=== PATIENT | female | born 1960 | race Caucasian/White ===

== ENCOUNTER 2018-05-20 21:05 | Emergency (ER) | payer OTHER ==
--- OUTSIDE RECORDS SUMMARY | 2018-05-20 21:12 | XMS REPORT ---
:1960 External Reference #:[id number] Author Organization [employer] Address [address] [place] [address] Phone [phone] Care Team Providers Name Role Phone Iwona Salgado MD Primary Care Physician Unavailable Payers Type Date Identification Numbers Payment Provider Subscriber Commercial Policy Number: [id number] [employer] Shante Zhou PayID: [id number] [address] [place] [address] Problems Date Description Provider Status Onset: 07/11/2010 Anxiety state Iwona Salgado M.D. Active Onset: 10/19/2010 Hypothyroidism Iwona Salgado M.D. Active Onset: 05/12/2013 Multiple joint pain Siddhartha Doran M.D. Active Onset: 05/12/2013 Immunological Findings Nonspec Siddhartha Doran M.D. Active Other & Unspec Onset: 05/16/2014 Inflammatory polyarthropathy Siddhartha Doran M.D. Active Onset: 05/30/2015 Acute stress disorder Siddhartha Doran M.D. Active Onset: 05/30/2015 Immunologic Siddhartha Doran M.D. Inactive Inactive: 11/02/2017 Family History Date Family Member(s) Problem(s) Comments : (age 91 Father due to Heart Years) Disease Father Heart Disease : (age 75 Mother due to Cancer liver CA - ? colon Years) Siblings 5 4 still living brother older 50yrs hepatitis older sister had an athymia : (age 50 First Brother due to stomach CA Years) Autoimmune hepatitis First Sister Arrhythmia treated with ablation. No details. 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 Cigarette Use Never Smoked Cigarettes ETOH Use 11/02/2017 Rarely consumes alcohol 1-2 beers per summer Smoking Patient has never smoked Daily Caffeine Consumes on average 2 cups 1/2 caff once a day at of decaff coffee per day work Exercise Type/Frequency Exercises regularly walk 4 mlies x5days week General Hx Text Health Care Proxy: Arnaldo Allergies, Adverse Reactions, Alerts Date Description Reaction Status Severity Comments 06/09/2010 Penicillin PT UNKNOWN active 06/30/2010 Azithromycin LUMP IN THROAT active Moderate 03/03/2018 Strawberries active get hives 03/03/2018 Kiwi Fruit Allergenic Extract active hives Medications Medication Date Status Form Strength Qnty SIG Indications Ordering Provider Rosa 05/05 Active Misc 2unit use daily as M22.2x9 Nomi Patella Knee /2016 s needed for Katlyn, Support/Medium right and left M.D. knee for stabilization Levothyroxine 01/19 Active Tablets 125mcg 90tab 1 by mouth E03.9 Iwona Sodium s every day Damian MRileyD. Sertraline HCL 10/05 Active Tablets 50mg 45tab 1 and 1/2 by F41.9 Iwona s mouth every Cotton, day M.D. Latanoprost 02/04 Active Solution 0.005% 1 drop in each Jaime /2015 eye Luz, CHILD SUPPORT SPECIALIST Alprazolam 09/10 Active Tablets 0.25mg 10tab 1 by mouth Z01.419 Iwona s every 8 hours Cotton, as needed M.D. F41.9 Calcium W/ Active Tablets 500mg / 1 po qd Unknown Vitamin D 400 Iu Vitamin D-3 Active Tablets 1200mg 90t Unknown abs Timolol Maleate Active Solution 0.5% 1 drop each Unknown eye qd Cefuroxime 11/02/2017 - Hx Tablets 500mg 14t 1 by mouth Hossein Axetil 11/09/2017 abs twice a day DRiley Villalta, for 7 days M.D.,FACP Fluconazole 09/06/2017 - Hx Tablets 150mg 4ta one po once L30 Dilma 11/02/2017 bs weekly until .4 Marcia N.P. rash clears. Desonide 08/26/2017 - Hx Cream 0.05% 15g Apply to L30 Jaime Escobar, 03/02/2018 m affected .4 CHILD SUPPORT SPECIALIST areas twice daily Aspercreme Max 05/05/2017 - Hx Liquid 16% 1un apply daily M51 Nomi Roll-On 08/26/2017 its as needed .36 Katlyn, Arthritis M.D. Strength Sertraline HCL 01/16/2016 - Hx Tablets 25mg 45t 1 and 1/2 by Iwona 06/05/2016 abs mouth every Cotton, day M.D. Levothyroxine 01/16/2016 - Hx Tablets 112mcg 90t 1 by mouth E03 Iwona Sodium 01/19/2017 abs every day .9 Austin Salgado. Clindamycin HCL 08/29/2015 - Hx Capsules 300mg 28c one capsule S80 Jaime Luz, 09/05/2015 aps by mouth .81 CHILD SUPPORT SPECIALIST every 6 hours 9A for 7 days Ceftin 02/04/2015 - Hx Tablets 250mg 20t one tab twice 465 Jaime Luz, 02/14/2015 abs daily for 10 .9 CHILD SUPPORT SPECIALIST days Vagifem 09/29/2013 - Hx Tablets 10mcg 24t pv twice a Iwona 02/20/2014 abs week (with Cotton, applicator) M.D. Alprazolam 05/15/2013 - Hx Tablets 0.25mg 40t 1 by mouth Iwona 01/17/2017 abs every 8 hours Cotton, as needed M.D. Vitamin D 02/23/2013 - Hx Capsules [id number] 12c 1 tablet once Iwona 06/18/2013 t aps weekly for 12 Cotton, weeks M.D. Sertraline HCL 02/08/2013 - Hx Tablets 50mg 30t Take One Iwona 01/16/2016 abs Tablet By Cotton, Mouth Once M.D. Daily Alprazolam 01/03/2013 - Hx Tablets 0.25mg 10t 1 by mouth 300 Iwona 05/12/2013 abs every 8 hours .00 Cotton, as needed M.D. Levothyroxine 01/03/2013 - Hx Tablets 100mcg 30t Take One E03 Iwona Sodium 01/16/2016 abs Tablet By .9 Cotton, Mouth Once M.D. Daily Levothyroxine 07/26/2012 - Hx Tablets 88mcg 30t 1 po qd 244 Dilma Sodium 01/03/2013 abs .9 Varn, N.P. Alprazolam 04/25/2012 - Hx Tablets 0.25mg 15t 1/2-1 tab po 300 Iwona 07/26/2012 abs every 8 hours .00 Cotton, as needed M.D. Vitamin D 03/30/2012 - Hx Capsules [id number] 12c 1 tablet once Iwona 07/26/2012 t aps weekly for 12 Cotton, weeks M.D. Ceftin 12/21/2011 - Hx Tablets 500mg 20t one by mouth 461 Iwona 12/31/2011 abs twice daily .9 Cotton, for 10 days M.D. Fluticasone 12/21/2011 - Hx Suspension 50mcg/Ac 1un 1 spray each 461 Iwona Propionate 04/25/2012 t its nostril daily .9 Cotton, as needed M.D. Synthroid 08/07/2010 - Hx Tablets 75mcg 90t 1 by mouth 244 Iwona 07/26/2012 abs once daily .9 Damian, M.D. Clonazepam 07/11/2010 - Hx Tablets 0.5mg 30t 1/2-1 by 300 Iwona 01/02/2011 abs mouth once .00 Cotton, daily at M.D. bedtime Sertraline HCL 07/11/2010 - Hx Tablets 50mg 30t 1 by mouth 300 Iwona 04/07/2012 abs once daily .00 Cotton, M.D. Fluticasone 06/30/2010 - Hx Suspension 50mcg/Ac 16g 2 intranasal Iwona Propionate 08/13/2010 t m puffs Daily Damian, M.D. Alprazolam 06/12/2010 - Hx Tablets 0.25mg 45t 1/2 tab po 300 Iwona 11/18/2010 abs every 8 hours .00 Cotton, as needed M.D. Levothroid - Hx Tablets 75mcg 90t 1 Tablet Iwona 08/07/2010 abs Daily Cotton, M.D. Veramyst - Hx Suspension 27.5mcg/ 1mo 2 sprays each Iwona 06/30/2010 [place] n nostril daily Cotton, M.D. Zoloft - Hx Tablets 25mg 30t 1 po qd Iwona 02/08/2013 abs Frankie Salgado Vagifem - Hx Tablets 10mcg insert 1 Unknown 08/28/2013 tablet vaginally twice a week Immunizations CPT Code Status Date Vaccine Reaction Lot # [id number] Given 07/22/2017 Influenza Virus Vaccine, [id number] Quadrivalent, Split, Preservative Free 38624 Given 07/07/2017 Tetanus And Diptheria (Td) [id number] For Adult Use Preservative Free 82247 Given 08/01/2016 Influenza Virus Vaccine, no reaction noted .. [id number] Quadrivalent, Split Virus, [place] [address] Given 08/05/2015 Influenza Virus Vaccine, [id number] Quadrivalent, Split, Preservative Free 19434 Given 07/21/2014 Influenza Virus Vaccine, [id number] Quadrivalent, Split, Preservative Free 71472 Given 08/04/2013 Flu Vaccine Split Virus [id number] Preservative Free For Indiv 3Yr Older [id number] Given 07/26/2012 Fluzone Vaccine [id number] 65265 Given 08/14/2011 Influenza Virus 3Yrs & Over [id number] 85032 Given 07/24/2010 Influenza Virus 3Yrs & Over 01117 Given 11/14/2009 Administration Swine Flu Shot 76509 Given 11/14/2009 Influenza Virus Vaccine, Pandemic Formulation 91784 Given 07/22/2009 Influenza Virus 3Yrs & Over 50490 Given 08/07/2008 Influenza Virus 3Yrs & Over 28819 Given 08/07/2008 Influenza Virus 3Yrs & Over 31021 Given 03/27/2008 Tdap - Tetanus/Diptheria/Acellular Pertussis 87842 Given 03/27/2008 Tdap - Tetanus/Diptheria/Acellular Pertussis 82922 Given 08/01/2007 Influenza Virus 3Yrs & Over 69757 Given 08/01/2007 Influenza Virus 3Yrs & Over 30177 Given 09/02/2006 Influenza Virus 3Yrs & Over Vital Signs Date Vital Result Comment 05/20/2018 Height 67 inches 5'7" Weight 167.00 lb Heart Rate 69 /min BP Systolic Sitting 116 mmHg BP Diastolic Sitting 69 mmHg Respiratory Rate 14 /min Pain Level 0 BMI (Body Mass Index) 26.2 kg/m2 03/03/2018 Height 67 inches 5'7" Weight 171.00 lb Heart Rate 68 /min BP Systolic 140 mmHg Rue reg cuff BP Diastolic 78 mmHg Rue reg cuff BP Systolic Sitting 142 mmHg Lue reg cuff BP Diastolic Sitting 84 mmHg Lue reg cuff BP Systolic Standing 150 mmHg Lue reg cuff BP Diastolic Standing 86 mmHg Lue reg cuff Respiratory Rate 16 /min O2 % BldC Oximetry 96 % BMI (Body Mass Index) 26.8 kg/m2 01/21/2018 Height 67 inches 5'7" Weight 169.00 lb Heart Rate 80 /min BP Systolic 122 mmHg BP Diastolic 76 mmHg Body Temperature 98.0 F O2 % BldC Oximetry 95 % BMI (Body Mass Index) 26.5 kg/m2 11/02/2017 Heart Rate 82 /min BP Systolic Sitting 120 mmHg BP Diastolic Sitting 80 mmHg Body Temperature 98.7 F O2 % BldC Oximetry 97 % 10/28/2017 Heart Rate 69 /min BP Systolic 122 mmHg BP Diastolic 84 mmHg Body Temperature 97.6 F O2 % BldC Oximetry 98 % 09/06/2017 Heart Rate 79 /min BP Systolic 144 mmHg BP Diastolic 82 mmHg Body Temperature 97.8 F O2 % BldC Oximetry 97 % 08/26/2017 Heart Rate 68 /min BP Systolic Sitting 121 mmHg BP Diastolic Sitting 80 mmHg O2 % BldC Oximetry 98 % 07/22/2017 Heart Rate 78 /min BP Systolic 120 mmHg BP Diastolic 80 mmHg O2 % BldC Oximetry 98 % 05/05/2017 Weight 167.38 lb Heart Rate 67 /min BP Systolic Sitting 130 mmHg BP Diastolic Sitting 79 mmHg Body Temperature 98.1 F Pain Level 1 04/08/2017 Heart Rate 60 /min BP Systolic Sitting 100 mmHg BP Diastolic Sitting 70 mmHg Respiratory Rate 16 /min Body Temperature 97.0 F 01/19/2017 Height 67 inches 5'7" Weight 165.50 lb Heart Rate 68 /min BP Systolic Sitting 130 mmHg BP Diastolic Sitting 82 mmHg Respiratory Rate 14 /min Body Temperature 98.0 F BMI (Body Mass Index) 25.9 kg/m2 11/05/2016 Weight 166.00 lb Heart Rate 60 /min BP Systolic 160 mmHg BP Diastolic 100 mmHg BP Systolic Sitting 128 mmHg BP Diastolic Sitting 84 mmHg Body Temperature 97.1 F O2 % BldC Oximetry 98 % 10/05/2016 Heart Rate 73 /min BP Systolic Sitting 160 mmHg repeat 140/100 (L) BP Diastolic Sitting 104 mmHg repeat 140/100 (L) O2 % BldC Oximetry 98 % 06/05/2016 Weight 164.50 lb Heart Rate 73 /min BP Systolic Sitting 121 mmHg BP Diastolic Sitting 71 mmHg O2 % BldC Oximetry 98 % 03/30/2016 Height 67 inches 5'7" Weight 162.00 lb Heart Rate 64 /min BP Systolic Sitting 140 mmHg BP Diastolic Sitting 78 mmHg Respiratory Rate 14 /min Body Temperature 98.4 F Pain Level 1 BMI (Body Mass Index) 25.4 kg/m2 03/09/2016 Height 67 inches 5'7" Weight 165.00 lb Heart Rate 64 /min BP Systolic Sitting 118 mmHg BP Diastolic Sitting 78 mmHg Body Temperature 98.3 F Pain Level 1 BMI (Body Mass Index) 25.8 kg/m2 01/16/2016 Height 67 inches 5'7" Weight 163.00 lb Heart Rate 15 /min BP Systolic Sitting 124 mmHg BP Diastolic Sitting 88 mmHg Respiratory Rate 15 /min Body Temperature 98.2 F O2 % BldC Oximetry 98 % BMI (Body Mass Index) 25.5 kg/m2 08/29/2015 Weight 164.00 lb Heart Rate 92 /min BP Systolic Sitting 126 mmHg BP Diastolic Sitting 86 mmHg Respiratory Rate 14 /min Body Temperature 98.8 F O2 % BldC Oximetry 97 % 08/05/2015 Weight 164.00 lb Heart Rate 75 /min BP Systolic Sitting 138 mmHg BP Diastolic Sitting 82 mmHg Body Temperature 98.3 F O2 % BldC Oximetry 98 % 05/30/2015 Height 67 inches 5'7" Weight 161.38 lb Heart Rate 100 /min BP Systolic Sitting 142 mmHg BP Diastolic Sitting 100 mmHg BP Systolic Recheck 136 mmHg BP Diastolic Recheck 90 mmHg Respiratory Rate 14 /min Pain Level 2 BMI (Body Mass Index) 25.3 kg/m2 05/13/2015 Weight 163.00 lb Heart Rate 82 /min BP Systolic Sitting 128 mmHg BP Diastolic Sitting 80 mmHg Body Temperature 98.6 F 02/04/2015 Height 67.5 inches 5'7.50" Weight 164.00 lb Heart Rate 78 /min BP Systolic 125 mmHg BP Diastolic 81 mmHg Body Temperature 98.8 F O2 % BldC Oximetry 98 % BMI (Body Mass Index) 25.3 kg/m2 01/14/2015 Height 67.5 inches 5'7.50" Weight 167.00 lb Heart Rate 73 /min BP Systolic 129 mmHg BP Diastolic 78 mmHg Body Temperature 98.8 F BMI (Body Mass Index) 25.8 kg/m2 10/25/2014 Height 67.5 inches 5'7.50" Weight 165.00 lb Heart Rate 62 /min BP Systolic 120 mmHg BP Diastolic 74 mmHg Body Temperature 97.9 F BMI (Body Mass Index) 25.5 kg/m2 09/18/2014 Weight 162.00 lb Heart Rate 75 /min BP Systolic Sitting 118 mmHg BP Diastolic Sitting 76 mmHg Body Temperature 97.3 F 09/16/2014 Weight 165.50 lb Heart Rate 60 /min BP Systolic Sitting 118 mmHg BP Diastolic Sitting 72 mmHg Pain Level 0 09/10/2014 Height 67.5 inches 5'7.50" Weight 163.00 lb Heart Rate 78 /min BP Systolic Sitting 124 mmHg BP Diastolic Sitting 78 mmHg BMI (Body Mass Index) 25.1 kg/m2 02/20/2014 Height 67.5 inches 5'7.50" Weight 163.00 lb BP Systolic Sitting 124 mmHg BP Diastolic Sitting 80 mmHg Body Temperature 99.4 F BMI (Body Mass Index) 25.1 kg/m2 01/04/2014 Height 67.5 inches 5'7.50" Weight 166.50 lb Heart Rate 64 /min BP Systolic 136 mmHg BP Diastolic 88 mmHg Respiratory Rate 16 /min Body Temperature 97.6 F BMI (Body Mass Index) 25.7 kg/m2 09/29/2013 Weight 164.25 lb Heart Rate 76 /min BP Systolic 118 mmHg BP Diastolic 86 mmHg 08/28/2013 Weight 169.00 lb Heart Rate 84 /min BP Systolic Sitting 133 mmHg BP Diastolic Sitting 74 mmHg 05/15/2013 Weight 162.00 lb Heart Rate 76 /min BP Systolic Sitting 124 mmHg BP Diastolic Sitting 76 mmHg 05/12/2013 Height 67 inches 5'7" Weight 162.50 lb Heart Rate 80 /min BP Systolic Sitting 126 mmHg BP Diastolic Sitting 80 mmHg BMI (Body Mass Index) 25.4 kg/m2 01/03/2013 Height 67 inches 5'7" Weight 162.50 lb Heart Rate 72 /min BP Systolic Sitting 104 mmHg BP Diastolic Sitting 74 mmHg BMI (Body Mass Index) 25.4 kg/m2 09/29/2012 Height 67.5 inches 5'7.50" Weight 164.00 lb Heart Rate 78 /min BP Systolic Sitting 128 mmHg BP Diastolic Sitting 76 mmHg BMI (Body Mass Index) 25.3 kg/m2 07/26/2012 Height 67.5 inches 5'7.50" Weight 162.00 lb Heart Rate 76 /min BP Systolic Sitting 122 mmHg BP Diastolic Sitting 68 mmHg BMI (Body Mass Index) 25.0 kg/m2 04/25/2012 Height 67.5 inches 5'7.50" Weight 161.00 lb Heart Rate 74 /min BP Systolic Sitting 124 mmHg BP Diastolic Sitting 68 mmHg BMI (Body Mass Index) 24.8 kg/m2 04/07/2012 Height 67.5 inches 5'7.50" Weight 160.00 lb Heart Rate 82 /min BP Systolic Sitting 130 mmHg BP Diastolic Sitting 81 mmHg BMI (Body Mass Index) 24.7 kg/m2 12/21/2011 Height 67.5 inches 5'7.50" Weight 165.00 lb Heart Rate 78 /min BP Systolic Sitting 116 mmHg BP Diastolic Sitting 62 mmHg Body Temperature 97.9 F BMI (Body Mass Index) 25.5 kg/m2 12/14/2011 Height 67.5 inches 5'7.50" Weight 163.00 lb Heart Rate 80 /min BP Systolic Sitting 122 mmHg BP Diastolic Sitting 68 mmHg Body Temperature 99.0 F BMI (Body Mass Index) 25.1 kg/m2 08/14/2011 Height 67.5 inches 5'7.50" Weight 163.00 lb Heart Rate 74 /min BP Systolic Sitting 110 mmHg BP Diastolic Sitting 68 mmHg BMI (Body Mass Index) 25.1 kg/m2 08/07/2011 Height 67.5 inches 5'7.50" Weight 164.00 lb Heart Rate 78 /min BP Systolic Sitting 118 mmHg BP Diastolic Sitting 70 mmHg BMI (Body Mass Index) 25.3 kg/m2 04/23/2011 Height 67.5 inches 5'7.50" Weight 158.00 lb Heart Rate 76 /min BP Systolic Sitting 110 mmHg BP Diastolic Sitting 70 mmHg BMI (Body Mass Index) 24.4 kg/m2 01/02/2011 Weight 155.00 lb Heart Rate 62 /min BP Systolic 118 mmHg BP Diastolic 78 mmHg 11/18/2010 Weight 153.25 lb Heart Rate 64 /min BP Systolic 104 mmHg BP Diastolic 70 mmHg Body Temperature 99.1 F 10/20/2010 Weight 151.00 lb Heart Rate 68 /min BP Systolic 112 mmHg BP Diastolic 78 mmHg 08/13/2010 Weight 149.00 lb Heart Rate 64 /min BP Systolic 112 mmHg BP Diastolic 70 mmHg 07/24/2010 Weight 146.00 lb Heart Rate 76 /min BP Systolic 120 mmHg BP Diastolic 74 mmHg 07/11/2010 Weight 147.00 lb Heart Rate 60 /min BP Systolic 122 mmHg BP Diastolic 80 mmHg 06/30/2010 Weight 150.50 lb Heart Rate 70 /min BP Systolic 126 mmHg BP Diastolic 80 mmHg 06/12/2010 Weight 148.00 lb Heart Rate 80 /min BP Systolic 130 mmHg BP Diastolic 80 mmHg 06/09/2010 Weight 150.50 lb Heart Rate 78 /min BP Systolic 110 mmHg BP Diastolic 86 mmHg Body Temperature 98.8 F Results Test Date Test Result H/L Range Note Order 03/03/2018 EKG <pending> Lipid Profile (Trig/Chol/HDL) 01/13/2018 Triglycerides 158 mg/dL 1, 2 Cholesterol 199 mg/dL 1, 3 HDL Cholesterol 44.5 mg/dL 1, 4 LDL Cholesterol 123 mg/dL 1, 5 Comp Metabolic Panel 01/13/2018 Sodium 142 mmol/L 139-145 1 Potassium 4.3 mmol/L 3.5-5.0 1 Chloride 106 mmol/L 101-111 1 Co2 Carbon Dioxide 27 mmol/L 22-32 1 Anion Gap 9 mmol/L 2-11 1 Glucose 101 mg/dL High 70-100 1 Blood Urea Nitrogen 19 mg/dL 6-24 1 Creatinine 0.93 mg/dL 0.51-0.95 1 BUN/Creatinine Ratio 20.4 High 8-20 1 Calcium 9.4 mg/dL 8.6-10.3 1 Total Protein 7.8 g/dL 6.4-8.9 1 Albumin 4.2 g/dL 3.2-5.2 1 Globulin 3.6 g/dL 2-4 1 Albumin/Globulin Ratio 1.2 1-3 1 Total Bilirubin 0.40 mg/dL 0.2-1.0 1 Alkaline Phosphatase 53 U/L 34-104 1 Alt 15 U/L 7-52 1 Ast 17 U/L 13-39 1 Egfr Non- 61.7 >60 1 Egfr 79.4 >60 1, 6 Laboratory test 01/13/2018 TSH (Thyroid Stim 1.09 mcIU/mL 0.34-5.60 1, 7 finding Horm) Laboratory test 10/28/2017 Rapid Group A negative finding Strep Laboratory test 10/28/2017 Culture Throat SEE RESULT BELOW 8 finding Urine Culture And 07/26/2017 Urine Culture SEE RESULT BELOW 9, 10 Sensitivities Liver Function Panel 07/01/2017 Total Protein 7.7 g/dL 6.4-8.9 Albumin 4.4 g/dL 3.2-5.2 Globulin 3.3 g/dL 2-4 Albumin/Globulin Ratio 1.3 1-3 Total Bilirubin 0.40 mg/dL 0.2-1.0 Direct Bilirubin 0.10 mg/dL 0.03-0.18 Indirect Bilirubin 0.3 mg/dL 0.3-1.0 Alkaline Phosphatase 52 U/L 34-104 Alt 18 U/L 7-52 Ast 19 U/L 13-39 Urinalysis Profile 07/01/2017 Urine Color Yellow Urine Appearance Clear Urine Specific [place] 1.014 1.010-1.030 Urine pH 6.0 5-9 Urine Urobilinogen Negative Negative Urine Ketones Negative Negative Urine Protein Negative Negative Urine Leukocytes 2+ Negative Urine Blood 1+ Negative Urine Nitrite Negative Negative Urine Bilirubin Negative Negative Urine Glucose Negative Negative Urine White Blood Cell 1+(6-10/hpf) Absent Urine Red Blood Cell Trace(0-2/hpf) Absent Urine Bacteria Absent Absent Urine Squamous Epithelial Cell Present Absent Urine Culture And 07/01/2017 Urine Culture SEE RESULT BELOW 11 Sensitivities Connective Tissue Panel 05/13/2017 Anti-Nuclear 2.1 U High 12 Antibody Cyclic Citrullinated Peptide <15.6 U 13 Interpretation See Comment 14 Laboratory test 05/13/2017 Anti Double Stranded Dna 103 IU/mL 15 finding AB Laboratory test 03/10/2017 TSH (Thyroid Stim Horm) 1.09 mcIU/mL 0.34- 5.60 16 finding Lipid Profile 01/11/2017 Triglycerides 184 mg/dL 17 (Trig/Chol/HDL) Cholesterol 227 mg/dL 18 HDL Cholesterol 44.0 mg/dL 19 LDL Cholesterol 146 mg/dL 20 Laboratory test finding 01/11/2017 TSH (Thyroid Stim 5.69 mcIU/mL High 0.34-5.60 Horm) Basic Metabolic Panel 01/11/2017 Sodium 138 mmol/L 133-145 Potassium 4.3 mmol/L 3.5-5.0 Chloride 104 mmol/L 101-111 Co2 Carbon Dioxide 29 mmol/L 22-32 Anion Gap 5 mmol/L 2-11 Glucose 94 mg/dL 70-100 Blood Urea Nitrogen 17 mg/dL 6-24 Creatinine 0.93 mg/dL 0.51-0.95 BUN/Creatinine Ratio 18.3 8-20 Calcium 9.3 mg/dL 8.6-10.3 Egfr Non- 61.9 >60 Egfr 79.6 >60 21 Laboratory test finding 03/12/2016 TSH (Thyroid Stim Horm) 1.83 ?IU/mL 0.34-5.60 22 Laboratory test finding 03/12/2016 Centromere Auto Abs <0.2 U 23 Ribosomal Antibody 0.6 U 24 Anti Double Stranded Dna Ab 61.6 IU/mL High 25 Interpretation See Comment 26 dsDNA Ab by Crithidia Ifa Negative Negative Crithidia Interpretation See Comment 27 Isabelle Igg AB Reflex 03/12/2016 SS-A/Ro Antibody <0.2 U 28 SS-B/La Antibody <0.2 U 29 Sm (Suresh) IgG Antibody 0.2 U 30 U1-nRNP Antibody 0.8 U 31 Scl-70 (Scleroderma) Antibody <0.2 U 32 Sanaz-1 Antibody <0.2 U 33 Laboratory test finding 03/12/2016 Vitamin B12 387 pg/mL 180-914 34 Vitamin D, 1,25 Dihydroxy 37 pg/mL 18-78 35 Connective Tissue Panel 03/12/2016 Anti-Nuclear Antibody 3.1 U High 36 Cyclic Citrullinated Peptide 47.1 U 37 Laboratory test finding 01/10/2016 TSH (Thyroid Stim 7.11 ?IU/mL High 0.34 -5.60 38 Horm) Comp Metabolic Panel 01/10/2016 Sodium 138 mmol/L 133-145 Potassium 4.1 mmol/L 3.5-5.0 Chloride 104 mmol/L 101-111 Co2 Carbon Dioxide 30 mmol/L 22-32 Anion Gap 4 mmol/L 2-11 Glucose 95 mg/dL 70-100 Blood Urea Nitrogen 18 mg/dL 6-24 Creatinine 1.00 mg/dL High 0.51-0.95 BUN/Creatinine Ratio 18.0 8-20 Calcium 9.4 mg/dL 8.6-10.3 Total Protein 7.3 g/dL 6.4-8.9 Albumin 4.2 g/dL 3.2-5.2 Globulin 3.1 g/dL 2-4 Albumin/Globulin Ratio 1.4 1-3 Total Bilirubin 0.40 mg/dL 0.2-1.0 Alkaline Phosphatase 53 U/L 34-104 Alt 13 U/L 7-52 Ast 16 U/L 13-39 Egfr Non- 57.1 >60 Egfr 73.5 >60 39 Lipid Profile (Trig/Chol/HDL) 01/10/2016 Triglycerides 148 mg/dL 40 Cholesterol 212 mg/dL 41 HDL Cholesterol 43.7 mg/dL 42 LDL Cholesterol 139 mg/dL 43 Laboratory test finding 12/26/2015 Clotest SEE RESULT BELOW 44 Laboratory test finding 12/26/2015 Surgical Pathology SEE RESULT BELOW 45 Laboratory test finding 08/13/2015 Ferritin 100.9 ng/mL 11-307 CBC Auto Diff 08/13/2015 White Blood Count 5.1 10^3/uL 4.8-10.8 Red Blood Count 4.46 10^6/uL 4.0-5.4 Hemoglobin 14.0 g/dL 12.0-16.0 Hematocrit 42 % 35-47 Mean Corpuscular Volume 95 fL 80-97 Mean Corpuscular Hemoglobin 31 pg 27-31 Mean Corpuscular HGB Conc 33 g/dL 31-36 Red Cell Distribution Width 14 % 10.5-15 Platelet Count 219 10^3/uL 150-450 Mean Platelet Volume 7 um3 Low 7.4-10.4 Abs Neutrophils 2.6 10^3/uL 1.5-7.7 Abs Lymphocytes 2.0 10^3/uL 1.0-4.8 Abs Monocytes 0.4 10^3/uL 0-0.8 Abs Eosinophils 0.1 10^3/uL 0-0.6 Abs Basophils 0.1 10^3/uL 0-0.2 Abs Nucleated RBC 0 10^3/uL Granulocyte % 50.6 % 38-83 Lymphocyte % 38.6 % 25-47 Monocyte % 7.9 % 1-9 Eosinophil % 1.8 % 0-6 Basophil % 1.1 % 0-2 Nucleated Red Blood Cells % 0.1 Jone Hep-2 05/17/2015 Jone Pattern Centromere Negative Jone Titer 1:320 <1:80 Jone Reviewed By MD Nella Wood 46 Laboratory test finding 05/17/2015 Rheumatoid Factor <15 IU/mL <15 47 Cyclic Citrullinated Pep Igg 34.5 U 48 Comp Metabolic Panel 05/17/2015 Sodium 139 mmol/L 133-145 Potassium 4.0 mmol/L 3.5-5.0 Chloride 104 mmol/L 101-111 Co2 Carbon Dioxide 27 mmol/L 22-32 Anion Gap 8 mmol/L 2-11 Glucose 88 mg/dL 70-100 Blood Urea Nitrogen 19 mg/dL 6-24 Creatinine 0.93 mg/dL 0.51-0.95 BUN/Creatinine Ratio 20.4 High 8-20 Calcium 9.7 mg/dL 8.6-10.3 Total Protein 8.0 g/dL 6.4-8.9 Albumin 4.4 g/dL 3.2-5.2 Globulin 3.6 g/dL 2-4 Albumin/Globulin Ratio 1.2 1-3 Total Bilirubin 0.50 mg/dL 0.2-1.0 Alkaline Phosphatase 57 U/L 34-104 Alt 18 U/L 7-52 Ast 19 U/L 13-39 Egfr Non- 62.4 >60 Egfr 80.2 >60 49 Laboratory test finding 05/17/2015 Erythrocyte Sed Rate 27 mm/Hr 0-30 C Reactive Protein 3.06 mg/L < 5.00 50 Jone (Antinuclear Antibodies) Reflexed to FA Negative Isabelle Screen Negative Negative 51 Anti Dna (Double Stranded Dna) Negative Negative Lipid Profile (Trig/Chol/HDL) 05/17/2015 Triglycerides 208 mg/dL 52, 53 Cholesterol 217 mg/dL 52, 54 HDL Cholesterol 44.9 mg/dL 52, 55 LDL Cholesterol 131 mg/dL 52, 56 Laboratory test finding 05/17/2015 TSH (Thyroid Stim 3.61 ?IU/mL 0.34- 5.60 52, 57 Horm) Basic Metabolic Panel 09/12/2014 Sodium 139 mmol/L 133-145 Potassium 4.4 mmol/L 3.5-5.0 58 Chloride 105 mmol/L 101-111 Co2 Carbon Dioxide 30 mmol/L 22-32 Anion Gap 4 mmol/L 2-11 Glucose 97 mg/dL 70-100 Blood Urea Nitrogen 19 mg/dL 6-24 Creatinine 0.98 mg/dL High 0.51-0.95 BUN/Creatinine Ratio 19.4 8-20 Calcium 9.7 mg/dL 8.6-10.3 Egfr Non- 58.9 >60 Egfr 75.8 >60 59 Laboratory test finding 09/12/2014 Creatine Kinase 157 U/L 10-223 CBC Auto Diff 05/16/2014 White Blood Count 5.3 10^3/uL 4.8-10.8 Red Blood Count 4.52 10^6/uL 4.0-5.4 Hemoglobin 14.4 g/dL 12.0-16.0 Hematocrit 42 % 35-47 Mean Corpuscular Volume 93 fL 80-97 Mean Corpuscular Hemoglobin 32 pg High 27-31 Mean Corpuscular HGB Conc 34 g/dL 31-36 Red Cell Distribution Width 14 % 10.5-15 Platelet Count 221 10^3/uL 150-450 Mean Platelet Volume 8 um3 7.4-10.4 Abs Neutrophils 2.5 10^3/uL 1.5-7.7 Abs Lymphocytes 2.1 10^3/uL 1.0-4.8 Abs Monocytes 0.5 10^3/uL 0-0.8 Abs Eosinophils 0.1 10^3/uL 0-0.6 Abs Basophils 0 10^3/uL 0-0.2 Abs Nucleated RBC 0 10^3/uL Granulocyte % 47.6 % 38-83 Lymphocyte % 39.3 % 25-47 Monocyte % 9.6 % High 1-9 Eosinophil % 2.6 % 0-6 Basophil % 0.9 % 0-2 Nucleated Red Blood Cells % 0.1 Comp Metabolic Panel 05/16/2014 Sodium 141 mmol/L 133-145 Potassium 4.3 mmol/L 3.7-5.6 Chloride 104 mmol/L 101-111 Co2 Carbon Dioxide 33 mmol/L High 22-32 Anion Gap 4 mmol/L 2-11 Glucose 78 mg/dL 70-100 Blood Urea Nitrogen 17 mg/dL 6-24 Creatinine 0.97 mg/dL High 0.51-0.95 BUN/Creatinine Ratio 17.5 8-20 Calcium 9.7 mg/dL 8.6-10.3 Total Protein 8.0 g/dL 6.4-8.9 Albumin 4.6 g/dL 3.2-5.2 Globulin 3.4 g/dL 2-4 Albumin/Globulin Ratio 1.4 1-3 Total Bilirubin 0.30 mg/dL 0.2-1.0 Alkaline Phosphatase 57 U/L 34-104 Alt 17 U/L 7-52 Ast 19 U/L 13-39 Egfr Non- 59.6 >60 Egfr 76.7 >60 60 Laboratory test finding 05/16/2014 C Reactive Protein 1.20 mg/L < 5.00 61 Erythrocyte Sed Rate 19 mm/Hr 0-30 Jone (Anti-Nuclear AB) Screen Reflexed to FA Negative Isabelle Screen Reflexed Negative 62 Anti Double Stranded Dna Negative Negative Urinalysis Profile 05/16/2014 Urine Color Yellow Urine Appearance Clear Urine Specific Corona 1.020 1.010-1.030 Urine pH 7.0 5-9 Urine Urobilinogen Negative Negative Urine Ketones Negative Negative Urine Protein Negative Negative Urine Leukocytes Negative Negative Urine Blood Negative Negative Urine Nitrite Negative Negative Urine Bilirubin Negative Negative Urine Glucose Negative Negative Isabelle Igg AB Reflex 05/16/2014 SS-A/Ro Antibody 0.3 U 63 SS-B/La Antibody 0.7 U 64 Sm (Suresh) IgG Antibody 0.3 U 65 U1-nRNP Antibody 0.9 U 66 Scl-70 (Scleroderma) Antibody <0.2 U 67 Sanaz-1 Antibody <0.2 U 68 Jone Hep-2 05/16/2014 Jone Pattern Centromere Negative Jone Titer 1:160 <1:80 Jone Reviewed By MD Heladio aTte <SEE NOTE> 69 Lipid Profile (Trig/Chol/HDL) 05/03/2014 Triglycerides 178 mg/dL 70 Cholesterol 214 mg/dL 71 HDL Cholesterol 42.2 mg/dL 72 LDL Cholesterol 136 mg/dL 73 Laboratory test finding 05/03/2014 Hepatitis C Antibody Nonreactive Nonreactive Comp Metabolic Panel 01/01/2014 Sodium 140 mmol/L 133-145 Potassium 4.8 mmol/L 3.7-5.6 Chloride 105 mmol/L 101-111 Co2 Carbon Dioxide 30 mmol/L 22-32 Anion Gap 5 mmol/L 2-11 Glucose 86 mg/dL 70-100 Blood Urea Nitrogen 15 mg/dL 6-24 Creatinine 0.96 mg/dL High 0.51-0.95 BUN/Creatinine Ratio 15.6 8-20 Calcium 9.6 mg/dL 8.6-10.3 Total Protein 7.7 g/dL 6.4-8.9 Albumin 4.3 g/dL 3.2-5.2 Globulin 3.4 g/dL 2-4 Albumin/Globulin Ratio 1.3 1-3 Total Bilirubin 0.40 mg/dL 0.2-1.0 Alkaline Phosphatase 57 U/L 34-104 Alt 19 U/L 7-52 Ast 20 U/L 13-39 Egfr Non- 60.3 >60 Egfr 77.6 >60 74 Lipid Profile (Trig/Chol/HDL) 01/01/2014 Triglycerides 213 mg/dL 75 Cholesterol 237 mg/dL 76 HDL Cholesterol 47.9 mg/dL 77 LDL Cholesterol 147 mg/dL 78 Laboratory test finding 01/01/2014 TSH (Thyroid Stimulating 4.42 IU/mL 0.34-5.60 79 Horm) Vitamin D, 25 Hydroxy 01/01/2014 25-Hydroxy Vitamin D2 7.9 ng/mL 25-Hydroxy Vitamin D3 16 ng/mL 25-Hydroxy Vitamin D Total 24 ng/mL 80 CBC With Manual Diff 05/01/2013 White Blood Count 5.3 10^3/uL 4.8-10.8 Red Blood Count 4.69 10^6/uL 4.0-5.4 Hemoglobin 15.2 g/dL 12.0-16.0 Hematocrit 44 % 35-47 Mean Corpuscular Volume 95 fL 80-97 Mean Corpuscular Hemoglobin 32 pg High 27-31 Mean Corpuscular HGB Conc 34 g/dL 31-36 Red Cell Distribution Width 14 % 10.5-15 Platelet Count 232 10^3/uL 150-450 Mean Platelet Volume 8 um3 7.4-10.4 Abs Neutrophils 3.0 10^3/uL 1.5-7.7 Abs Lymphocytes 1.8 10^3/uL 1.0-4.8 Abs Monocytes 0.4 10^3/uL 0-0.8 Abs Eosinophils 0.1 10^3/uL 0-0.6 Abs Basophils 0 10^3/uL 0-0.2 Abs Nucleated RBC 0.01 10^3/uL Neutrophil % 62 % 38-83 Lymphocytes % 32 % 25-47 Monocytes % 5 % 0-13 Basophil % 1 % 0-2 RBC Morphology Normal Normal Laboratory test finding 05/01/2013 Erythrocyte Sed Rate 23 mm/Hr 0-30 C Reactive Protein 0.8 mg/dL High Less than 0.5 Comp Metabolic Panel 05/01/2013 Sodium 138 mmol/L 133-145 Potassium 3.9 mmol/L 3.5-5.0 Chloride 104 mmol/L 101-111 Co2 Carbon Dioxide 30.0 mmol/L 22-32 Anion Gap 4.0 mmol/L 2-11 Glucose 92 mg/dL 70-100 Blood Urea Nitrogen 17 mg/dL 6-24 Creatinine 0.90 mg/dL 0.50-1.40 BUN/Creatinine Ratio 18.9 8-20 Calcium 9.6 mg/dL 8.1-9.9 Total Protein 7.6 g/dL 6.2-8.1 Albumin 4.2 g/dL 3.6-5.4 Globulin 3.4 g/dL 2-4 Albumin/Globulin Ratio 1.2 1-3 Total Bilirubin 0.6 mg/dL 0.4-1.5 Alkaline Phosphatase 56 U/L 30-110 Alt 18 U/L 14-54 Ast 23 U/L 12-42 Egfr Non- 65.2 >60 Egfr 83.9 >60 81 Laboratory test finding 05/01/2013 Cyclic Citrullinated Pept IgG 16.7 U 82 Rheumatoid Factor <15 IU/mL <15 83 Jone (Anti-Nuclear AB) Screen Reflexed to FA Negative 84 Isabelle Screen Negative Negative 85 Anti Double Stranded Dna Positive Negative 86 Jone Hep-2 05/01/2013 Jone Pattern Speckled Negative Jone Titer 1:160 <1:80 Ojne Reviewed By MD Heladio Tate <SEE NOTE> 87 Vitamin D, 25 Hydroxy 02/20/2013 25-Hydroxy Vitamin D2 6.1 ng/mL 25-Hydroxy Vitamin D3 17 ng/mL 25-Hydroxy Vitamin D Total 23 ng/mL 88 Laboratory test finding 02/20/2013 TSH (Thyroid Stimulating 3.69 miu/mL 0.34-5.60 89 Horm) Vitamin B12 355 pg/mL 180-914 90 Laboratory test finding 11/29/2012 Glucose 88 mg/dL 70-100 91 TSH (Thyroid Stimulating Horm) 5.19 miu/mL 0.34-5.60 92 Lipid Profile (Trig/Chol/HDL) 11/29/2012 Triglycerides 113 mg/dL 40-200 Cholesterol 204 mg/dL High Less than 200 HDL Cholesterol 47 mg/dL 40-60 93 Cholesterol/HDL Ratio 4.3 Average 1-4.44 LDL Cholesterol 134.4 mg/dL High Less Than 100 94 Laboratory test finding 11/29/2012 TSH (Thyroid Stimulating 4.28 miu/mL 0.34-5.60 95 Horm) Laboratory test finding 06/10/2012 TSH 4.80 MIU/ML 0.34-5.60 Lipid Profile 06/10/2012 Triglyceride 139 mg/dL 40-200 (Trig/Chol/HDL) Cholesterol 205 mg/dL High Less Than 200 96 High Density Lipoprotein 47 mg/dL 40-60 97 Cholesterol/HDL Ratio 4.36 AVERAGE 1-4.44 Low Density Lipoprotein 130 mg/dL High Less Than 100 98 Vitamin D, 25 Hydroxy 06/10/2012 25-Hydroxy Vitamin D2 35 ng/mL () 25-Hydroxy Vitamin D3 13 ng/mL () 25-Hydroxy Vitamin D Total 48 ng/mL () 99 Dna Autoab Single-Stranded 03/29/2012 SS-A/Ro Autoantibodies 0.2 U () 100 SS-B/La Autoantibodies 0.2 U () 101 Jone (Antinuclear Antibodies) 03/29/2012 Antinuclear AB POSITIVE (NEG) Antinuclear AB PENDING FA Negative Jone Pattern CENTROMERE Antinuclear AB 1:160 Jone Rev By MD HELADIO TATE <SEE NOTE> 102 Laboratory test finding 03/29/2012 Erythrocyte Sed Rate 21 MM/HR 0-30 Scleroderma AB (SCL70) <0.2 U () 103 Cyclic Citrullinated Pep Igg 28.6 U () 104 Rheumatoid Factor < 15 IU/mL <15 105 CBC With Manual Diff 03/29/2012 White Blood Count 5.4 CUMM 4.8-10.8 Red Cell Count 4.49 CUMM 4.2-5.4 Hemoglobin 14.4 g/dL 12.0-16.0 Hematocrit 41 % 35-47 Mean Corpuscular Volume 92 um3 79-97 Mean Corpuscular Hemoglob 32 pg High 27-31 Mean Corpuscular HGB Cone 35 g/dL 32-36 Redcell Distribution WDTH 14 % 10.5-15 Platelet Count 222 CUMM 150-450 Mean Platelet Volume 7.9 um3 7.4-10.4 Absolute Neutrophil Count 3.0 1.5-7.7 Polysegmented Neutrophil 57 % 38-83 Lymphocyte 36 % 25-47 Monocyte 5 % 0-13 Eosinophil 1 % 0-6 Basophil 1 % 0-2 RBC Morphology NORMAL Laboratory test finding 03/29/2012 C Reactive Protein < 0.5 mg/dL Less Than 0.5 Comp Metabolic Panel 03/29/2012 Sodium 139 mmol/L 135-145 Potassium 4.0 mmol/L 3.5-5.0 Chloride 106 mmol/L 101-111 Co2 (Carbon Dioxide) 26.0 mmol/L 22-32 Anion Gap 7.0 mmol/L 2-11 106 Glucose 92 mg/dL 70-100 BUN 13 mg/dL 6-24 Creatinine 0.9 mg/dL 0.50-1.40 One Over Creatinine 1.11 BUN/Creatinine Ratio 14.4 8-20 Calcium 9.2 mg/dL 8.1-9.9 Total Protein 7.5 GM/DL 6.2-8.1 Albumin 4.2 GM/DL 3.6-5.4 Globulin 3.3 GM/DL 2-4 Albumin/Globulin Ratio 1.3 1-3 Bilirubin Total 0.8 mg/dL 0.4-1.5 107 Alkaline Phosphatase 59 U/L 30-110 Alt (SGPT) 22 U/L 14-54 Ast (Sgot) 24 U/L 12-42 eGFR Non- 65.5 > 60 eGFR 84.2 > 60 108 Vitamin D, 25 Hydroxy 03/29/2012 25-Hydroxy Vitamin D2 <4.0 ng/mL () 25-Hydroxy Vitamin D3 20 ng/mL () 25-Hydroxy Vitamin D Total 20 ng/mL () 109 Laboratory test finding 11/18/2011 Isabelle Screen NEGATIVE Negative 110 Jone (Antinuclear Antibodies) 11/18/2011 Antinuclear AB POSITIVE (NEG) Antinuclear AB PENDING FA Negative Jone Pattern CENTROMERE Antinuclear AB 1:160 Jone Rev By MD HELADIO TATE <SEE NOTE> 111 Laboratory test finding 11/18/2011 Scleroderma AB (SCL70) <0.2 U () 112 Dna Autoab Single-Stranded 11/18/2011 SS-A/Ro Autoantibodies 0.2 U () 113 SS-B/La Autoantibodies 0.2 U () 114 Laboratory test finding 11/18/2011 Erythrocyte Sed Rate 17 MM/HR 0-30 Centromere Autoantibodies <0.2 U () 115 Rheumatoid Factor < 15 IU/mL <15 116 CBC With Manual Diff 11/18/2011 White Blood Count 4.9 CUMM 4.8-10.8 Red Cell Count 4.27 CUMM 4.2-5.4 Hemoglobin 14.1 g/dL 12.0-16.0 Hematocrit 40 % 35-47 Mean Corpuscular Volume 94 um3 79-97 Mean Corpuscular Hemoglob 33 pg High 27-31 Mean Corpuscular HGB Cone 35 g/dL 32-36 Redcell Distribution WDTH 13 % 10.5-15 Platelet Count 240 CUMM 150-450 Mean Platelet Volume 8.0 um3 7.4-10.4 Polysegmented Neutrophil 77 % 38-83 Lymphocyte 17 % Low 25-47 Monocyte 3 % 0-13 Eosinophil 3 % 0-6 Absolute Neutrophil Count 3.7 RBC Morphology NORMAL Laboratory test finding 11/18/2011 C Reactive Protein 0.9 mg/dL High Less Than 0.5 Comp Metabolic Panel 11/18/2011 Sodium 138 mmol/L 135-145 Potassium 4.1 mmol/L 3.5-5.0 Chloride 106 mmol/L 101-111 Co2 (Carbon Dioxide) 28.0 mmol/L 22-32 Anion Gap 4.0 mmol/L 2-11 117 Glucose 91 mg/dL 70-100 BUN 19 mg/dL 6-24 Creatinine 1.0 mg/dL 0.50-1.40 One Over Creatinine 1.00 BUN/Creatinine Ratio 19.0 8-20 Calcium 9.4 mg/dL 8.1-9.9 Total Protein 7.8 GM/DL 6.2-8.1 Albumin 4.1 GM/DL 3.6-5.4 Globulin 3.7 GM/DL 2-4 Albumin/Globulin Ratio 1.1 1-3 Bilirubin Total 0.5 mg/dL 0.4-1.5 118 Alkaline Phosphatase 54 U/L 30-110 Alt (SGPT) 19 U/L 14-54 Ast (Sgot) 21 U/L 12-42 eGFR Non- 58.0 > 60 eGFR 74.6 > 60 119 CBC Auto Diff 04/23/2011 White Blood Count 6.9 CUMM 4.8-10.8 120 Red Cell Count 4.28 CUMM 4.2-5.4 120 Hemoglobin 13.6 g/dL 12.0-16.0 120 Hematocrit 41 % 35-47 120 Mean Corpuscular Volume 95 um3 79-97 120 Mean Corpuscular Hemoglob 32 pg High 27-31 120 Mean Corpuscular HGB Cone 33 g/dL 32-36 120 Redcell Distribution WDTH 14 % 10.5-15 120 Platelet Count 224 CUMM 150-450 120 Mean Platelet Volume 7.9 um3 7.4-10.4 120 Gran % 62.5 % 38-83 120 Lymph % 25.6 % 25-47 120 Mononuclear % 9.4 % High 1-9 120 Eosinophil % 1.9 % 0-6 120 Basophil % 0.6 % 0-2 120 Abs Lymphs 1.8 1.0-4.8 120 Abs Mononuclear 0.7 0-0.8 120 Absolute Neutrophil Count 4.3 1.5-7.7 120 Abs Eosinophils 0.1 0-0.6 120 Abs Basophils 0 0-0.2 120 Lipid Profile (Trig/Chol/HDL) 04/23/2011 Triglyceride 208 mg/dL High 40- 200 120 Cholesterol 209 mg/dL High Less Than 200 120, 121 High Density Lipoprotein 45 mg/dL 40-60 120, 122 Cholesterol/HDL Ratio 4.64 AVERAGE High 1-4.44 120 Low Density Lipoprotein 122 mg/dL High Less Than 100 120, 123 Comp Metabolic Panel 04/23/2011 Sodium 138 mmol/L 135-145 120 Potassium 4.3 mmol/L 3.5-5.0 120 Chloride 105 mmol/L 101-111 120 Co2 (Carbon Dioxide) 28.0 mmol/L 22-32 120 Anion Gap 5.0 mmol/L 2-11 120, 124 Glucose 98 mg/dL 70-100 120 BUN 13 mg/dL 6-24 120 Creatinine 0.90 mg/dL 0.50-1.40 120 One Over Creatinine 1.10 120 BUN/Creatinine Ratio 14.4 8-20 120 Calcium 9.4 mg/dL 8.1-9.9 120 Total Protein 7.7 GM/DL 6.2-8.1 120 Albumin 4.3 GM/DL 3.6-5.4 120 Globulin 3.4 GM/DL 2-4 120 Albumin/Globulin Ratio 1.3 1-3 120 Bilirubin Total 0.5 mg/dL 0.4-1.5 120, 125 Alkaline Phosphatase 49 U/L 30-110 120 Alt (SGPT) 16 U/L 14-54 120 Ast (Sgot) 23 U/L 12-42 120 eGFR Non- 65.7 > 60 120 eGFR 84.6 > 60 120, 126 Laboratory test finding 04/23/2011 Cyclic Citrullinated Pep Igg 20.2 U ( ) 120, 127 TSH 3.87 MIU/ML 0.34-5.60 120 Jone (Antinuclear Antibodies) 04/23/2011 Antinuclear AB POSITIVE Negative 120 Jone Pattern CENTROMERE 120 Antinuclear AB 1:80 120 Reviewed By (SEE NOTE) 120, 128 Laboratory test finding 04/23/2011 Erythrocyte Sed Rate 19 MM/HR 0-30 120 C Reactive Protein < 0.5 mg/dL Less Than 0.5 120 Rheumatoid Factor < 15 IU/mL <15 120, 129 Surgical Pathology 12/01/2010 Surgical Pathology <SEE 130 NOTE> Laboratory test 12/01/2010 Clotest NEGATIVE finding Laboratory test 10/27/2010 TSH 2.99 MIU/ML 0.34-5. finding 60 Lipid Profile 10/27/2010 Triglyceride 99 mg/dL 40-200 (Trig/Chol/HDL) Cholesterol 207 mg/dL High Less Than 200 131 High Density Lipoprotein 50 mg/dL 40-60 132 Cholesterol/HDL Ratio 4.14 AVERAGE 1-4.44 Low Density Lipoprotein 137 mg/dL High Less Than 100 133 Comp Metabolic Panel 10/27/2010 Sodium 137 mmol/L 135-145 Potassium 4.2 mmol/L 3.5-5.0 Chloride 102 mmol/L 101-111 Co2 (Carbon Dioxide) 30.0 mmol/L 22-32 Anion Gap 5.0 mmol/L 2-11 134 Glucose 87 mg/dL 70-100 BUN 16 mg/dL 6-24 Creatinine 0.90 mg/dL 0.50-1.40 One Over Creatinine 1.10 BUN/Creatinine Ratio 17.8 8-20 Calcium 9.4 mg/dL 8.1-9.9 Total Protein 7.7 GM/DL 6.2-8.1 Albumin 4.2 GM/DL 3.6-5.4 Globulin 3.5 GM/DL 2-4 Albumin/Globulin Ratio 1.2 1-3 Bilirubin Total 0.8 mg/dL 0.4-1.5 135 Alkaline Phosphatase 50 U/L 30-110 Alt (SGPT) 16 U/L 14-54 Ast (Sgot) 20 U/L 12-42 eGFR Non- 70.2 > 60 eGFR 84.9 > 60 136 CBC With Electronic Diff 10/27/2010 White Blood Count 5.1 CUMM 4.8-10.8 Red Cell Count 4.31 CUMM 4.2-5.4 Hemoglobin 14.2 g/dL 12.0-16.0 Hematocrit 41 % 35-47 Mean Corpuscular Volume 95 um3 79-97 Mean Corpuscular Hemoglob 33 pg High 27-31 Mean Corpuscular HGB Cone 35 g/dL 32-36 Redcell Distribution WDTH 13 % 10.5-15 Platelet Count 212 CUMM 150-450 Mean Platelet Volume 7.2 um3 Low 7.4-10.4 Gran % 55.4 % 38-83 Lymph % 32.7 % 25-47 Mononuclear % 8.4 % 1-9 Eosinophil % 2.6 % 0-6 Basophil % 0.9 % 0-2 Abs Lymphs 1.7 1.0-4.8 Abs Mononuclear 0.4 0-0.8 Absolute Neutrophil Count 2.8 1.5-7.7 Abs Eosinophils 0.1 0-0.6 Abs Basophils 0 0-0.2 1 FASTING 10 HOUR 2 Desirable: <150 Borderline High: 150-199 High: 200-499 Very High: >500 3 Desirable: <200 Borderline High: 200-239 High: >239 4 Low: <40 Desirable: 40-60 High: >60 5 Desirable: <100 Near Optimal: 100-129 Borderline High: 130-159 High: 160-189 Very High: >189 6 Because ethnic data is not always readily available, this report includes an eGFR for both -Americans and non- Americans. The National Kidney Disease Education Program (NKDEP) does not endorse the use of the MDRD equation for patients that are not between the ages of 18 and 70, are , have extremes of body size, muscle mass, or nutritional status, or are non- or non-. According to the National Kidney Foundation, irrespective of diagnosis, the stage of the disease is based on the level of kidney function: Stage Description GFR(mL/min/1.73 m(2)) 1 Kidney damage with normal or decreased GFR 90 2 Kidney damage with mild decrease in GFR 60-89 3 Moderate decrease in GFR 30-59 4 Severe decrease in GFR 15-29 5 Kidney failure <15 (or dialysis) 7 FASTING 10 HOUR 8 SEE RESULT BELOW Name: SHANTE ZHOU : [address]: Jaime Escobar NP Acct: [id number] Unit: [id number] AGE: 56 Location: [facility] Re10/28/17 SEX: F Status: REG REF SPEC: [id number] MARIEL: 10/28/[address]: Jaime Escobar NP REQ: [id number] RECD: 10/28/17 STATUS: COMP _ SOURCE: THROAT SPDESC: ORDERED: Throat Culture COMMENTS: [id number] Procedure Result Reported Site Throat Culture Final 10/30/17- 1325 ML Organism 1 NORMAL SHANE Quantity 3+ * ML - MAIN LAB ([facility]) . END OF REPORT * ML=Testing performed at Main Lab DEPARTMENT OF PATHOLOGY, [address] [place] [address] Heladio Galvan M.D. Director [facility] # [id number] SEE RESULT BELOW Name: SHANTE ZHOU : [address]: Iwona Salgado MD Acct: [id number] Unit: [id number] AGE: 56 Location: [facility] Re07/26/17 SEX: F Status: REG REF SPEC: [id number] MARIEL: 07/26/[address] [facility] [address]: Iwona Salgado MD REQ: [id number] RECD: 07/26/17 STATUS: COMP _ SOURCE: URINE SPDESC: ORDERED: Urine Culture COMMENTS: [id number] Procedure Result Reported Site Urine Culture Final 07/27/17- 1241 ML No Growth (<1,000 CFU/mL) * ML - MAIN LAB ([facility]) . END OF REPORT * ML=Testing performed at Main Lab DEPARTMENT OF PATHOLOGY, [address] [place] [address] Heladio Galvan M.D. Director [facility] # [id number] 11 SEE RESULT BELOW Name: SHANTE ZHOU : [address]: Nomi Potts MD Acct: [id number] Unit: [id number] AGE: 56 Location: [facility] Re07/01/17 SEX: F Status: REG REF SPEC: [id number] MARIEL: 07/01/[address]: Nomi Potts MD REQ: [id number] RECD: 07/01/17 STATUS: COMP _ SOURCE: URINE SPDESC: ORDERED: Urine Culture Procedure Result Reported Site Urine Culture Final 07/03/17- 834 ML Organism 1 ENTEROCOCCUS FAECALIS [place] Count 10-25,000 (Moderate) CFU/ML 1. ENTEROCOCCUS FAECALIS [facility] RX --------- ------ Ampicillin <=2 S Penicillin 2 S Ciprofloxacin 1 S Gentamicin High Level S Levofloxacin 1 S Linezolid 2 S Nitrofurantoin <=16 S * Quinupristin/Dalfopristin 8 R * Streptomycin High Level R Tetracycline >=16 R Tigecycline <=0.12 S Vancomycin 1 S Imipenem-Deduced S * Ampicillin/Sulbactam-Deduced S * These antibiotics are not available in the [facility] Formulary Contact the Microbiology Department for any additional antibiotic reporting. * ML - [facility] ([facility]) . END OF REPORT * ML=Testing performed at Main Lab DEPARTMENT OF PATHOLOGY, [address] [place] [address] Heladio Galvan M.D. Director [facility] # [id number] 12 Interpretation: Weak Positive (1.1-2.9) REFERENCE VALUE <=1.0 (Negative) 13 REFERENCE VALUE <20.0 (Negative) 14 Tests for antibodies to dsDNA and ISABELLE antigens are not performed automatically unless the JONE result is > or= 3.0 U. Studies performed at [facility] indicate that positive JONE results <3.0 U are rarely accompanied by positive second order tests. Test Performed by: [facility] [place] [address] 15 Interpretation: Positive (>75.0) REFERENCE VALUE <30.0 (Negative) Test Performed by: [place] [address] 16 DO THIS IN 4-6 WEEKS 17 Desirable <150 Borderline high 150-199 High 200-499 Very High >500 18 Desirable <200 Borderline high 200-239 High >239 19 Low <40 Desirable: 40-60 High: >60 20 Desirable: <100 mg/dL Near Optimal: 100-129 mg/dL Borderline High: 130-159 mg/dL High: 160-189 mg/dL Very High: >189 mg/dL 21 Because ethnic data is not always readily available, this report includes an eGFR for both -Americans and non- Americans. The National Kidney Disease Education Program (NKDEP) does not endorse the use of the MDRD equation for patients that are not between the ages of 18 and 70, are , have extremes of body size, muscle mass, or nutritional status, or are non- or non-. According to the National Kidney Foundation, irrespective of diagnosis, the stage of the disease is based on the level of kidney function: Stage Description GFR(mL/min/1.73 m(2)) 1 Kidney damage with normal or decreased GFR 90 2 Kidney damage with mild decrease in GFR 60-89 3 Moderate decrease in GFR 30-59 4 Severe decrease in GFR 15-29 5 Kidney failure <15 (or dialysis) 22 DO THIS IN ABOUT 2 MONTHS 23 REFERENCE VALUE <1.0 (Negative) Test Performed by: [place] [address] Knowledge Analyst: Kiran Cochran II, M.D., Ph.D. 24 REFERENCE VALUE <1.0 (Negative) Test Performed by: [place] [address] Knowledge Analyst: Kiran Cochran II, M.D., Ph.D. 25 Interpretation: Borderline (30.0-75.0) See "dsDNA Ab by [facility] IFA, IgG" for confirmatory test result. REFERENCE VALUE <30.0 (Negative) Test Performed by: [place] [address] Knowledge Analyst: Kiran Cochran II, M.D., Ph.D. 26 Positive for anti-CCP antibody. Positive JONE, although the only specific antibody identified was borderline positive for dsDNA. However, follow-up testing was negative by [facility] luciliae immunofluorescence. Unable to confirm borderline positive anti-dsDNA antibody result obtained by enzyme immunoassay. The clinical significance of these findings is unclear. Unable to provide further interpretation without clinical information. Correlation with clinical presentation recommended. Test Performed by: [place] [address] Knowledge Analyst: Kiran Cochran II, M.D., Ph.D. 27 Testing for dsDNA antibody by [facility] IFA was negative. Unable to confirm borderline positive result obtained by enzyme immunoassay. Test Performed by: [place] [address] Knowledge Analyst: Kiran Cochran II, M.D., Ph.D. 28 REFERENCE VALUE <1.0 (Negative) 29 REFERENCE VALUE <1.0 (Negative) 30 REFERENCE VALUE <1.0 (Negative) 31 REFERENCE VALUE <1.0 (Negative) 32 REFERENCE VALUE <1.0 (Negative) 33 REFERENCE VALUE <1.0 (Negative) Test Performed by: [place] [address] Knowledge Analyst: Kirna Cochran II, M.D., Ph.D. 34 Normal Range 180 to 914 Indeterminate Range 145 to 180 Deficient Range <145 35 Test Performed by: [place] [address] Knowledge Analyst: Kiran Cochran II, M.D., Ph.D. 36 Interpretation: Positive (3.0-5.9) REFERENCE VALUE <=1.0 (Negative) 37 Interpretation: Positive (40.0-59.9) REFERENCE VALUE <20.0 (Negative) Test Performed by: [place] [address] Knowledge Analyst: Kiran Cochran II, M.D., Ph.D. 38 FASTING 12 HOUR 39 Because ethnic data is not always readily available, this report includes an eGFR for both -Americans and non- Americans. The National Kidney Disease Education Program (NKDEP) does not endorse the use of the MDRD equation for patients that are not between the ages of 18 and 70, are , have extremes of body size, muscle mass, or nutritional status, or are non- or non-. According to the National Kidney Foundation, irrespective of diagnosis, the stage of the disease is based on the level of kidney function: Stage Description GFR(mL/min/1.73 m(2)) 1 Kidney damage with normal or decreased GFR 90 2 Kidney damage with mild decrease in GFR 60-89 3 Moderate decrease in GFR 30-59 4 Severe decrease in GFR 15-29 5 Kidney failure <15 (or dialysis) 40 Desirable <150 Borderline high 150-199 High 200-499 Very High >500 41 Desirable <200 Borderline high 200-239 High >239 42 Low <40 Desirable: 40-60 High: >60 43 Desirable: <100 mg/dL Near Optimal: 100-129 mg/dL Borderline High: 130-159 mg/dL High: 160-189 mg/dL Very High: >189 mg/dL 44 SEE RESULT BELOW Name: SHANTE ZHOU : [address]: Wayne Alvarez MD Acct: [id number] Unit: [id number] AGE: 55 Location: [facility] Re12/26/15 SEX: F Status: REG REF SPEC: [id number] MARIEL: 12/26/15-[address] [facility] [address]: Wayne Alvarez MD REQ: [id number] RECD: 12/26/15 STATUS: ERIC BROTHERS DR: Iwona Salgado MD _ S[facility]: Clotest Procedure Result Reported Site Clotest Final 12/27/15- 726 ML Clotest Negative * ML - MAIN LAB ([facility]) . END OF REPORT * ML=Testing performed at Main Lab DEPARTMENT OF PATHOLOGY, [address] [place] [address] Heladio Galvan M.D. Director [facility] # [id number] 45 SEE RESULT BELOW Name: SHANTE ZHOU : [address]: Wayne Alvarez MD Acct: [id number] Unit: [id number] AGE: 55 Location: [facility] Re12/26/15 SEX: F Status: REG REF SPEC: [id number] MARIEL: 12/26/15- SUBM DR: Wayne Alvarez MD REQ: [id number] RECD: 12/26/15163 STATUS: DANIEL BROTHERS DR: Iwona Salgado MD _ ORDERED: LEVEL IV FINAL DIAGNOSIS Stomach, biopsy: -- Hyperplastic fundic gland polyps CLINICAL HISTORY Family history of colon cancer (mother); gastric polyps. POST-OPERATIVE DIAGNOSIS Esophagus - normal, no erosion. Stomach - multiple (10-15) tiny fundal polyps biopsied, otherwise normal. Duodenum - normal bulb to 3rd portion. Colonoscopy into cecum: prep good - mild sigmoid diverticulosis - no polyp. Conclusions/plan: small fundal polyps biopsied, diverticulosis otherwise normal colonoscopy. GROSS DESCRIPTION The specimen is received in formalin labeled, Biopsy Gastric Polyps, and consists of a 0.6 x 0.6 x 0.3 cm aggregate of bradford irregular to polypoid soft tissue fragments, which is submitted entirely in one cassette. Signed (signature on file) Heladio Galvan MD [id number] END OF REPORT * ML=Testing performed at Main Lab DEPARTMENT OF PATHOLOGY, [address] [place] [address] Heladio Galvan M.D. Director [facility] # [id number] 46 [address] 47 Test Performed by: [place] [address] Knowledge Analyst: Kiran Cochran II, M.D., Ph.D. 48 Interpretation: Weak Positive (20.0-39.9) REFERENCE VALUE <20.0 (Negative) Test Performed by: [address] [address] Knowledge Analyst: Kiran Cochran II, M.D., Ph.D. 49 Because ethnic data is not always readily available, this report includes an eGFR for both -Americans and non- Americans. The National Kidney Disease Education Program (NKDEP) does not endorse the use of the MDRD equation for patients that are not between the ages of 18 and 70, are , have extremes of body size, muscle mass, or nutritional status, or are non- or non-. According to the National Kidney Foundation, irrespective of diagnosis, the stage of the disease is based on the level of kidney function: Stage Description GFR(mL/min/1.73 m(2)) 1 Kidney damage with normal or decreased GFR 90 2 Kidney damage with mild decrease in GFR 60-89 3 Moderate decrease in GFR 30-59 4 Severe decrease in GFR 15-29 5 Kidney failure <15 (or dialysis) 50 Acute inflammation: >10.00 51 The above SIABELLE screen is designed for the detection of antibodies to extractable nuclear antigen (ISABELLE) in human serum. It is a combination test for the detection of antibodies to SNIPPER, Sm, SS-A (Ro), and SS-B (La) nuclear antigens. 52 FASTING 53 Desirable <150 Borderline high 150-199 High 200-499 Very High >500 54 Desirable <200 Borderline high 200-239 High >239 55 Low <40 Desirable: 40-60 High: >60 56 Desirable: <100 mg/dL Near Optimal: 100-129 mg/dL Borderline High: 130-159 mg/dL High: 160-189 mg/dL Very High: >189 mg/dL 57 FASTING 58 Potassium reference range changed effective 08/19/14 59 Because ethnic data is not always readily available, this report includes an eGFR for both -Americans and non- Americans. The National Kidney Disease Education Program (NKDEP) does not endorse the use of the MDRD equation for patients that are not between the ages of 18 and 70, are , have extremes of body size, muscle mass, or nutritional status, or are non- or non-. According to the National Kidney Foundation, irrespective of diagnosis, the stage of the disease is based on the level of kidney function: Stage Description GFR(mL/min/1.73 m(2)) 1 Kidney damage with normal or decreased GFR 90 2 Kidney damage with mild decrease in GFR 60-89 3 Moderate decrease in GFR 30-59 4 Severe decrease in GFR 15-29 5 Kidney failure <15 (or dialysis) 60 Because ethnic data is not always readily available, this report includes an eGFR for both -Americans and non- Americans. The National Kidney Disease Education Program (NKDEP) does not endorse the use of the MDRD equation for patients that are not between the ages of 18 and 70, are , have extremes of body size, muscle mass, or nutritional status, or are non- or non-. According to the National Kidney Foundation, irrespective of diagnosis, the stage of the disease is based on the level of kidney function: Stage Description GFR(mL/min/1.73 m(2)) 1 Kidney damage with normal or decreased GFR 90 2 Kidney damage with mild decrease in GFR 60-89 3 Moderate decrease in GFR 30-59 4 Severe decrease in GFR 15-29 5 Kidney failure <15 (or dialysis) 61 Acute inflammation: >10.00 62 Positive Reflexed for additional Testing. Specimen has been sent to reference lab for expanded evaluation (to include seperate antibogy titers for SNIPPER, Sm, SS-A (Ro), SS-B (La), SCL-70, and Sanaz-1). The above ISABELLE screen is designed for the detection of antibodies to extractable nuclear antigen (ISABELLE) in human serum. It is a combination test for the detection of antibodies to SNIPPER, Sm, SS-A (Ro), and SS-B (La) nuclear antigens. 63 -- REFERENCE VALUE -- <1.0 (Negative) 64 -- REFERENCE VALUE -- <1.0 (Negative) 65 -- REFERENCE VALUE -- <1.0 (Negative) 66 -- REFERENCE VALUE -- <1.0 (Negative) 67 -- REFERENCE VALUE -- <1.0 (Negative) 68 -- REFERENCE VALUE -- <1.0 (Negative) Test Performed by: [place] [address] Knowledge Analyst: Atilio Her III, M.D. 69 Heladio Galvan 70 Desirable <150 Borderline high 150-199 High 200-499 Very High >500 71 Desirable <200 Borderline high 200-239 High >239 72 Low <40 Desirable: 40-60 High: >60 73 Desirable <100 Near Optimal 100-129 Borderline high 130-159 High 160-189 Very High >189 74 Because ethnic data is not always readily available, this report includes an eGFR for both -Americans and non- Americans. The National Kidney Disease Education Program (NKDEP) does not endorse the use of the MDRD equation for patients that are not between the ages of 18 and 70, are , have extremes of body size, muscle mass, or nutritional status, or are non- or non-. According to the National Kidney Foundation, irrespective of diagnosis, the stage of the disease is based on the level of kidney function: Stage Description GFR(mL/min/1.73 m(2)) 1 Kidney damage with normal or decreased GFR 90 2 Kidney damage with mild decrease in GFR 60-89 3 Moderate decrease in GFR 30-59 4 Severe decrease in GFR 15-29 5 Kidney failure <15 (or dialysis) 75 Desirable <150 Borderline high 150-199 High 200-499 Very High >500 76 Desirable <200 Borderline high 200-239 High >239 77 Low <40 Desirable: 40-60 High: >60 78 Desirable <100 Near Optimal 100-129 Borderline high 130-159 High 160-189 Very High >189 79 FASTING DO IN DECEMBER 2013 PRIOR TO PHYSICAL 80 -- REFERENCE VALUE -- 25-HYDROXY D TOTAL (D2+D3) Optimum levels in the healthy population are 20-50, patients with bone disease may benefit from higher levels within this range. Test Performed by: [address] [address] Knowledge Analyst: Atilio Her III, M.D. 81 Because ethnic data is not always readily available, this report includes an eGFR for both -Americans and non- Americans. The National Kidney Disease Education Program (NKDEP) does not endorse the use of the MDRD equation for patients that are not between the ages of 18 and 70, are , have extremes of body size, muscle mass, or nutritional status, or are non- or non-. According to the National Kidney Foundation, irrespective of diagnosis, the stage of the disease is based on the level of kidney function: Stage Description GFR(mL/min/1.73 m(2)) 1 Kidney damage with normal or decreased GFR 90 2 Kidney damage with mild decrease in GFR 60-89 3 Moderate decrease in GFR 30-59 4 Severe decrease in GFR 15-29 5 Kidney failure <15 (or dialysis) 82 -- REFERENCE VALUE -- <20.0 (Negative) Test Performed by: [place] [address] Knowledge Analyst: Atilio Her III, M.D. 83 Test Performed by: [place] [address] Knowledge Analyst: Atilio Her III, M.D. 84 @Sample frozen by [id number] at 1100 on 05/01/13. @05/02/13 1441: JONE Hep-2 added. RFLXG=NETTA. 85 The above ISABELLE screen is designed for the detection of antibodies to extractable nuclear antigen (ISABELLE) in human serum. It is a combination test for the detection of antibodies to SNIPPER, Sm, SS-A (Ro), and SS-B (La) nuclear antigens. 86 @Sample frozen by [id number] at 1100 on 05/01/13. @05/02/13 1441: JONE Hep-2 added. RFLXG=NETTA. 87 Heladio Galvan 88 Interpretation: 10-24 (mild to moderate deficiency) -- REFERENCE VALUE -- 25-HYDROXY D TOTAL (D2+D3) Optimum levels in the normal population are 25-80 Test Performed by: [place] [address] Knowledge Analyst: Atilio Her III, M.D. 89 DO IN 6 WEEKS 90 DO IN 6 WEEKS 91 FASTING 10 HOUR 92 FASTING 10 HOUR 93 HDL Interpretation: Undesirable: High Risk: Less than 40 MG/DL Desirable: Low Risk: Greater than 60 MG/DL 94 LDL Interpretation: Low Risk Optimal Level: LDL Less than 100 MG/DL Near or Above Optimal: LDL 100-129 MG/DL Borderline High Risk: LDL 130-159 MG/DL High Risk: LDL 160-189 MG/DL Very High Risk: LDL Greater than 189 MG/DL 95 DO IN ABOUT 6 WEEKS 96 CHOLESTEROL INTERPRETATION: Desirable: Less than 200 MG/DL Borderline-High Risk: 200-239 MG/DL High-Risk: 240 MG/DL and over 97 HDL INTERPRETATION: Undesirable: High Risk: Less than 40 MG/DL Desirable: Low Risk: Greater than 60 MG/DL 98 LDL INTERPRETATION: Low Risk Optimal Level: LDL Less than 100 MG/DL Near or Above Optimal: LDL 100-129 MG/DL Borderline High Risk: LDL 130-159 MG/DL High Risk: LDL 160-189 MG/DL Very High Risk: LDL Greater than 189 MG/DL 99 -- REFERENCE VALUE -- 25-HYDROXY D TOTAL (D2+D3) Optimum levels in the normal population are 25-80 Test Performed by: [place] [address] Knowledge Analyst: Atilio Her III, M.D. 100 -- REFERENCE VALUE -- <1.0 (Negative) 101 -- REFERENCE VALUE -- <1.0 (Negative) Test Performed by: [place] [address] Knowledge Analyst: Atilio Her III, M.D. 102 HELADIO GALVAN 103 -- REFERENCE VALUE -- <1.0 (Negative) Test Performed by: [place] [address] Knowledge Analyst: Atilio Her III, M.D. 104 Interpretation: Weak Positive (20.0-39.9) -- REFERENCE VALUE -- <20.0 (Negative) Test Performed by: [place] [address] Knowledge Analyst: Atilio Her III, M.D. 105 Test Performed by: [place] [address] Knowledge Analyst: Atilio Her III, M.D. 106 Anion gap measurement may be of limited value in the presence of any alkalosis, especially in a combined acid base disorder. . 107 A metabolite of Naproxen, O-desmethylnaproxen, has been shown to interfere with the Jendrvaldoik-Reji method for measuring total bilirubin. Samples from patients who have taken Naproxen have shown spurious elevation in total bilirubin levels. 108 Because ethnic data is not always readily available, this report includes an eGFR for both -Americans and non- Americans. The National Kidney Disease Education Program (NKDEP) does not endorse the use of the MDRD equation for patients that are not between the ages of 18 and 70, are , have extremes of body size, muscle mass, or nutritional status, or are non- or non-. According to the National Kidney Foundation, irrespective of diagnosis, the stage of the disease is based on the level of kidney function: Stage Description GFR(mL/min/1.73 m(2)) 1 Kidney damage with normal or decreased GFR 90 2 Kidney damage with mild decrease in GFR 60-89 3 Moderate decrease in GFR 30-59 4 Severe decrease in GFR 15-29 5 Kidney failure <15 (or dialysis) 109 Interpretation: 10-24 (mild to moderate deficiency) -- REFERENCE VALUE -- 25-HYDROXY D TOTAL (D2+D3) Optimum levels in the normal population are 25-80 Test Performed by: [place] [address] Knowledge Analyst: Atilio Her III, M.D. 110 The above ISABELLE screen is designed for the detection of antibodies to extractable nuclear antigen (ISABELLE) in human serum. It is a combination test for the detection of antibodies to SNIPPER, Sm, SS-A (Ro), and SS-B (La) nuclear antigens. 111 HELADIO GALVAN 112 -- REFERENCE VALUE -- <1.0 (Negative) Test Performed by: [facility] D[facility] of Lab Med and Pathology [address] [place] [address] Knowledge Analyst: Atilio Her III, M.D. 113 -- REFERENCE VALUE -- <1.0 (Negative) 114 -- REFERENCE VALUE -- <1.0 (Negative) Test Performed by: [facility] D[facility] Lab Med and Pathology [address] [place] [address] Knowledge Analyst: Atilio Her III, M.D. 115 -- REFERENCE VALUE -- <1.0 (Negative) Test Performed by: [facility] Lab Med and Pathology [address] [place] [address] Knowledge Analyst: Atilio Her III, M.D. 116 Test Performed by: [facility] Lab Med and Pathology [address] [place] [address] Knowledge Analyst: Atilio Her III, M.D. 117 Anion gap measurement may be of limited value in the presence of any alkalosis, especially in a combined acid base disorder. . 118 A metabolite of Naproxen, O-desmethylnaproxen, has been shown to interfere with the Jendrassik-Reji method for measuring total bilirubin. Samples from patients who have taken Naproxen have shown spurious elevation in total bilirubin levels. 119 Because ethnic data is not always readily available, this report includes an eGFR for both -Americans and non- Americans. The National Kidney Disease Education Program (NKDEP) does not endorse the use of the MDRD equation for patients that are not between the ages of 18 and 70, are , have extremes of body size, muscle mass, or nutritional status, or are non- or non-. According to the National Kidney Foundation, irrespective of diagnosis, the stage of the disease is based on the level of kidney function: Stage Description GFR(mL/min/1.73 m(2)) 1 Kidney damage with normal or decreased GFR 90 2 Kidney damage with mild decrease in GFR 60-89 3 Moderate decrease in GFR 30-59 4 Severe decrease in GFR 15-29 5 Kidney failure <15 (or dialysis) 120 NON FASTING 121 CHOLESTEROL INTERPRETATION: Desirable: Less than 200 MG/DL Borderline-High Risk: 200-239 MG/DL High-Risk: 240 MG/DL and over 122 HDL INTERPRETATION: Undesirable: High Risk: Less than 40 MG/DL Desirable: Low Risk: Greater than 60 MG/DL 123 LDL INTERPRETATION: Low Risk Optimal Level: LDL Less than 100 MG/DL Near or Above Optimal: LDL 100-129 MG/DL Borderline High Risk: LDL 130-159 MG/DL High Risk: LDL 160-189 MG/DL Very High Risk: LDL Greater than 189 MG/DL 124 Anion gap measurement may be of limited value in the presence of any alkalosis, especially in a combined acid base disorder. . 125 A metabolite of Naproxen, O-desmethylnaproxen, has been shown to interfere with the Jendrassik-Reji method for measuring total bilirubin. Samples from patients who have taken Naproxen have shown spurious elevation in total bilirubin levels. 126 Because ethnic data is not always readily available, this report includes an eGFR for both -Americans and non- Americans. The National Kidney Disease Education Program (NKDEP) does not endorse the use of the MDRD equation for patients that are not between the ages of 18 and 70, are , have extremes of body size, muscle mass, or nutritional status, or are non- or non-. According to the National Kidney Foundation, irrespective of diagnosis, the stage of the disease is based on the level of kidney function: Stage Description GFR(mL/min/1.73 m(2)) 1 Kidney damage with normal or decreased GFR 90 2 Kidney damage with mild decrease in GFR 60-89 3 Moderate decrease in GFR 30-59 4 Severe decrease in GFR 15-29 5 Kidney failure <15 (or dialysis) 127 Interpretation: Weak Positive (20.0-39.9) -- REFERENCE VALUE -- <20.0 (Negative) Test Performed by: [facility] Lab Med and Pathology [address] [place] [address] Knowledge Analyst: Atilio Her III, M.D. 128 REVIEWED BY NILAM SHANKS MD 129 Test Performed by: [facility] Lab Med and Pathology [address] [place] [address] Knowledge Analyst: Atilio Her III, M.D. 130 ----- RUN DATE: 12/03/10 [facility] NMI LIVE PAGE 1 RUN TIME: 1449 Specimen Inquiry RUN USER: INTERFACE -- Name: SHANTE ZHOU Status: REG REF Re12/01/10 Age/Sex: 50/F Unit#: [id number] Location: [facility]. : 56 -- Specimen: [id number] SOUT Spec Date: 12/01/[address]: Wayne denney MD Spec Type: SURGICAL P Received: 12/02/10 Copies to: Iwona cabezas MD SPECIMEN BIOPSY GASTRIC POLYPS HISTORY POST-OP DIAGNOSIS: Esophagus-normal; stomach-multiple small fundal polyps , biopsied; duodenum-normal bulb to 3rd portion; colonoscopy to cecum, prep good - n ormal CLINICAL INFORMATION: Nausea. Family history of colon carcinoma. Screeni ng. GROSS DESCRIPTION The specimen is received in formalin labelled Shante Zhou, Biopsy Gastric Polyps, and consists of several fragments of yellow tissue measuring 0.8 x 0.5 x 0.4 cm. Submitted entirely, one cassette. DIAGNOSIS Stomach, biopsy: Fragments of fundic gland type polyp. Signed Electronically by: NILAM SHANKS 12/03/10 1449 -- -- DEPARTMENT OF PATHOLOGY, [address] [place] [address] [facility] Permit #[id number] Frankie Gallo M.D. Marketing Producer Dir girma -- 131 CHOLESTEROL INTERPRETATION: Desirable: Less than 200 MG/DL Borderline-High Risk: 200-239 MG/DL High-Risk: 240 MG/DL and over 132 HDL INTERPRETATION: Undesirable: High Risk: Less than 40 MG/DL Desirable: Low Risk: Greater than 60 MG/DL 133 LDL INTERPRETATION: Low Risk Optimal Level: LDL Less than 100 MG/DL Near or Above Optimal: LDL 100-129 MG/DL Borderline High Risk: LDL 130-159 MG/DL High Risk: LDL 160-189 MG/DL Very High Risk: LDL Greater than 189 MG/DL 134 Anion gap measurement may be of limited value in the presence of any alkalosis, especially in a combined acid base disorder. . 135 A metabolite of Naproxen, O-desmethylnaproxen, has been shown to interfere with the Eloise- method for measuring total bilirubin. Samples from patients who have taken Naproxen have shown spurious elevation in total bilirubin levels. 136 Because ethnic data is not always readily available, this report includes an eGFR for both -Americans and non- Americans. The National Kidney Disease Education Program (NKDEP) does not endorse the use of the MDRD equation for patients that are not between the ages of 18 and 70, are , have extremes of body size, muscle mass, or nutritional status, or are non- or non-. According to the National Kidney Foundation, irrespective of diagnosis, the stage of the disease is based on the level of kidney function: Stage Description GFR(mL/min/1.73 m(2)) 1 Kidney damage with normal or decreased GFR 90 2 Kidney damage with mild decrease in GFR 60-89 3 Moderate decrease in GFR 30-59 4 Severe decrease in GFR 15-29 5 Kidney failure <15 (or dialysis) Procedures Date CPT Code Description Status 03/03/2018 45676 EKG Tracing & Interpretation Completed 02/22/2018 45599 ECHO Transthoracic, Real-Time 2D With Doppler And Color Completed Flow 02/22/2018 08568 ECHO Transthoracic, Real-Time 2D With Doppler And Color Completed Flow 05/24/2017 Mammogram Completed 01/19/2017 94511 Admin & Interp Of Health Risk Assessment w/ Patient Completed 10/05/2016 10351 EKG Tracing & Interpretation Completed 05/19/2016 Mammogram Completed 02/11/2016 13805 ECHO Transthoracic, Real-Time 2D With Doppler And Color Completed Flow 12/26/2015 Colonoscopy Completed 05/17/2015 Mammogram Completed 01/30/2015 69706 ECHO Transthoracic, Real-Time 2D With Doppler And Color Completed Flow 05/16/2014 Mammogram Completed 04/19/2013 Mammogram Completed 04/25/2012 13349 EKG Tracing & Interpretation Completed 03/30/2012 Mammogram Completed 04/23/2011 91375 EKG Tracing & Interpretation Completed 01/01/2011 Bone Mineral Density Test Completed 01/01/2011 Mammogram Completed 12/01/2010 Colonoscopy Completed 09/26/2009 98849 Holter Monitor Review (24 hr)dr review & interp only Completed 07/26/2009 42640 EKG Tracing & Interpretation Completed 04/03/2008 Bone Mineral Density Test Completed 03/27/2008 76097 EKG Tracing & Interpretation Completed 03/27/2008 82882 EKG Tracing & Interpretation Completed 09/21/2007 Mammogram Completed 01/03/2007 13153 Remove Impacted Cerumen Completed 01/03/2007 90747 Remove Impacted Cerumen Completed 12/29/2005 Diabetic Foot Exam Completed 11/30/2005 Colonoscopy Completed Encounters Type Date Location Provider CPT E/M Dx Office Visit 03/03/2018 [facility] 15874 Z13.6 10:40a [facility] FAC Z82.49 Office Visit 01/21/2018 4:20p [facility] Internal Medicine Iwona Salgado 01732 Z00.00 - Daniel David Z82.49 Office Visit 11/02/2017 4:00p [facility] Internal Medicine Hossein Villalta, 76699 J20.9 - Daniel David,FACP Z88.0 Office Visit 10/28/2017 4:00p [facility] [place] [address] J02.9 Daniel J06.9 Office Visit 09/06/2017 10:40a [facility] Internal Medicine Dilma Kennedy, N.[place]iley [address] L30.4 - [place] Office Visit 08/26/2017 4:20p [facility] [place] [address] R21 - [place] Office Visit 07/22/2017 7:40a [facility] Internal Medicine Iwona Salgado 76837 F41.9 - Daniel David N39.0 R42 N94.10 Z23 Office Visit 05/05/2017 10:40a [facility], 88329 R76.0 Juan Pablo David M18.0 M22.2x9 M51.36 Office Visit 04/08/2017 2:00p [facility] Internal Medicine Iwona Salgado 49493 H61.22 - Daniel David Office Visit 01/19/2017 9:20a [facility] Internal Medicine Iwona Salgado 67229 Z00.00 - Daniel David F41.9 E03.9 Z12.31 Office Visit 11/05/2016 10:00a [facility] Internal Medicine Iwona Salgado 78371 F41.9 - Daniel David R03.0 R07.0 Office Visit 10/05/2016 4:00p [facility] Internal Medicine Iwona Salgado 90591 F41.9 - [place] Frankie R03.0 R07.0 Office Visit 06/05/2016 4:00p [facility] Internal Medicine Iwona Salgado 24125 F41.9 - [place] Tr.Minoo R92.2 M54.9 Office Visit 03/30/2016 8:20a [facility], [address]76[address] [facility] Tr.DRiley M51.36 Office Visit 03/09/2016 9:20a [facility], 53536 R76.0 Spring Encaser Tr.DRiley M51.36 R20.8 R29.898 Office Visit 01/16/2016 9:20a [facility] Internal Medicine Iwona Salgado 11577 Z00.00 - Daniel David E03.9 F41.1 R10.32 R93.1 Office Visit 08/29/2015 2:40p [facility] [place] [address] S80.819A Medicine - [place] Office Visit 08/05/2015 11:40a [facility] Internal Iwona Salgado 51912 L65.8 Medicine - Daniel David M06.4 Z23 F41.9 R93.1 F41.1 Office Visit 05/30/2015 11:40a [facility] Siddhartha Doran 40613 795.79 Of Juan Pablo David 714.9 308.3 V17.89 Office Visit 05/13/2015 2:20p [facility] [place] [address] 719.47 [place] 724.2 Office Visit 02/04/2015 2:30p [facility] [place] [address] 465.9 - [place] Office Visit 01/14/2015 11:20a [facility] Internal Medicine Iwona Salgado 52158 V70.0 - Daniel aDvid V76.12 272.4 244.9 710.9 Office Visit 10/25/2014 9:40a [facility] Internal Medicine Iwona Salgado 17192 728.9 - Daniel David 698.8 729.1 Office Visit 09/18/2014 4:20p [facility] Internal Medicine Dilma Kennedy, N.P. 28733 380.4 - [place] Office Visit 09/10/2014 2:40p [facility] Internal Medicine Iwona Salgado 07425 728.9 - [place] MRodolfo Office Visit 05/16/2014 10:20a [facility] Services Siddhartha Doran M.D. 25484 795.[address] [facility] 714.9 Office Visit 02/20/2014 4:00p [facility] Internal Medicine Dilma Kennedy, N.P. 89434 729.92 - [place] Office Visit 01/04/2014 1:20p [facility] Internal Medicine Iwona Salgado 01453 V70.0 - [place] Frankie 244.9 783.1 272.2 V73.99 Office Visit 09/29/2013 11:20a [facility] Internal Medicine Iwona Salgado 56834 724.2 - [place] Frankie 717.7 Office Visit 08/28/2013 3:40p [facility] Internal Medicine Iwona Salgado 84976 300.00 - [place] Frankie 784.0 268.9 Office Visit 05/15/2013 1:00p [facility] Internal Medicine Iwona Salgado 13106 300.00 - [place] Tr.Minoo Office Visit 05/12/2013 2:00p [facility]ology Services Siddhartha Doran M.D. 05395 719.[address] [facility] 795.79 Office Visit 01/03/2013 1:20p [facility] Internal Medicine Iwona Salgado 64911 V70.0 - Daniel David 244.9 782.0 268.9 300.00 Office Visit 09/29/2012 11:20a [facility] Internal Medicine Iwona Salgado 17624 726.5 - [place] M.DRiley Office Visit 07/26/2012 11:40a [facility] Internal Medicine Iwona Salgado 68728 244.9 - [place] Frankie 272.9 V04.81 Office Visit 04/25/2012 3:00p [facility] Internal Medicine Iwona Salgado 43501 268.9 - [place] Frankie 300.00 244.9 786.50 Office Visit 04/07/2012 2:40p [facility] Siddhartha Doran 85855 719.49 Of [place] Encaser M.D. 795.79 Office Visit 12/21/2011 4:20p [facility] Internal Medicine Dilma Kennedy, N.P. 52554 461.9 - [place] 719.41 Office Visit 12/14/2011 4:20p [facility] Internal Medicine Dilma Kennedy, N.P. 46076 465.9 - [place] Office Visit 08/14/2011 1:00p DO Not Use Iwona Cotton, 28632 300.00 Spring Encaser-[place] M.D. v04.81 Office Visit 08/07/2011 1:40p [facility] Siddhartha Doran M.D. 03007 710.9 [facility] [facility] Office Visit 04/23/2011 9:00a DO Not Use Iwona Cotton, 79300 V70.0 [place] M.D. 714.9 272.4 244.9 723.1 Office Visit 01/02/2011 9:00a DO Not Use Iwona Cotton, 78409 300.00 [place] M.D. Office Visit 11/18/2010 4:00p DO Not Use Dilma Varn, [id number] 462 [place] N.P. Office Visit 10/20/2010 9:45a DO Not Use Iwona Cotton, 95934 300.00 [place] M.D. 787.02 704.00 Office Visit 08/13/2010 8:30a DO Not Use Iwona Cotton, 72676 300.00 [place] M.D. Office Visit 07/24/2010 8:45a DO Not Use Iwona Cotton, 10221 300.00 [place] M.D. V04.81 Office Visit 07/11/2010 8:45a DO Not Use Iwona Cotton, 63838 300.00 [place] M.D. Office Visit 06/30/2010 2:30p DO Not Use Iwona Cotton, 60431 300.00 [place] M.D. 388.30 729.5 Office Visit 06/12/2010 2:15p DO Not Use Iwona Cotton, 82310 300.00 [place] M.D. 381.81 Office Visit 06/09/2010 8:45a DO Not Use Iwona Salgado, 96031 780.4 [place] M.D. Office Visit 05/26/2010 11:30a DO Not Use Dilma Varn, N.P. 08765 380.4 [place] 611.71 Office Visit 04/04/2010 2:30p DO Not Use [place] Dilma Varn, 49999 477.9 N.P. Office Visit 11/14/2009 1:45p DO Not Use [place] Avelar, 96093 272.0 M.D. 785.1 V04.81 Office Visit 09/19/2009 3:45p DO Not Use [place], 97465 724.1 [place] M.D. 785.1 Office Visit 08/05/2009 11:30a DO Not Use [place] Dilma Kennedy, 45176 465.9 N.P. 462 Office Visit 07/26/2009 3:15p DO Not Use [place], 60672 785.1 [place] M.D. 244.9 Office Visit 06/07/2009 9:00a DO Not Use Dilma Marcia, 28656 719.46 [place] N.P. Office Visit 03/25/2009 10:30a DO Not Use Dilma Varnicholas, 98488 789.04 [place] N.P. Office Visit 03/27/2008 8:45a DO Not Use [place], 45216 V70.0 [place] M.D. 785.1 V06.1 Office Visit 02/27/2008 2:30p DO Not Use [place] Dilma Kennedy, 46974 461.9 N.P. Office Visit 04/05/2007 3:00p DO Not Use [place] Dilma Varnicholas, 49218 692.9 N.P. Office Visit 03/11/2007 4:30p DO Not Use [place] Avelar, 73123 692.9 M.D. Office Visit 02/25/2007 3:00p DO Not Use [place] Dilma Marcia, 31582 708.9 N.P. Office Visit 02/07/2007 4:15p DO Not Use [place] Avelar, 90794 462 M.D. 300.00 Office Visit 02/02/2007 4:15p DO Not Use [place] Dilma Varn, 41273 382.9 N.P. Office Visit 01/25/2007 8:30a DO Not Use [place] Dilma Varn, 59617 381.4 N.P. Office Visit 12/07/2006 1:15p DO Not Use [place] Avelar, 88358 724.1 M.D. 786.50 Office Visit 10/04/2006 3:30p DO Not Use [place], 24675 789.01 [place] M.DRiley 727.09 Plan of Care Future Appointment(s):05/22/2019 8:00 am - Nomi Potts M.D. at [facility]08/04/2018 8:00 am - Troy Munoz MD at [facility]05/20/2018 - Nomi Potts M.D.R76.0 Raised antibody titerFollow up: Follow up in 1 yearL30.9 Dermatitis, unspecified
[2018-05-20 21:14] VITALS: BP 138/86
--- NOTE | 2018-05-20 21:29 | UC ---
Complaint Female HPI - HPI Summary HPI Summary: This is [facility] documenting for presenting Candelario Bettencourt MD. Pt is a 57 y/o M c/o onset this evening ~ 3-4 hours ago. Pain is described as cramping and rated a 3/10, per comp. assessment. Assoc. Sx: dysuria. Denies: fever, chills, back pain. FHx: DM. Allergies: Penicillin. - History Of Current Complaint Chief Complaint: UCGU Stated Complaint: POSS UTI Time Seen by Provider: 05/20/18 21:08 Hx Obtained From: Patient Onset/Duration: Sudden Onset, Lasting Hours Timing: Constant, Lasting Hours Severity Currently: Mild Pain Intensity: 3 Pain Scale Used: 0-10 Numeric Character: Cramping Alleviating Factor(s): Nothing Associated Signs And Symptoms: Negative: Fever, Back Pain - Allergies/Home Medications Allergies/Adverse Reactions: Allergies Allergy/AdvReac Type Severity Reaction Status Date / Time Penicillins Allergy Unknown Verified 05/20/18 21:14 Reaction Details strawberry Allergy Hives Verified 05/20/18 21:14 Home Medications: Home Medications Cetirizine HCl [Zyrtec] 10 mg PO ONCE PRN 05/20/18 [History Confirmed 05/20/18] PMH/Surg Hx/FS Hx/Imm Hx Endocrine History: Other Other Endocrine History: NEG: DM. Cardiovascular History: Other Other Cardiovascular History: NEG: CAD, HTN. - Surgical History Surgical History: Yes Surgery Procedure, Year, and Place: hysterectomy, appendectomy, thyroid cyst removal - Family History Known Family History: Positive: Diabetes Negative: Cardiac Disease, Hypertension - Social History Occupation: Employed Full-time Lives: With Family Alcohol Use: None Substance Use Type: None Smoking Status (MU): Never Smoked Tobacco Review of Systems Constitutional: Other - NEG: fever, chills. Genitourinary: Dysuria Musculoskeletal: Other: - NEG: back pain All Other Systems Reviewed And Are Negative: Yes Physical Exam - Summary Physical Exam Summary: VITAL SIGNS: Reviewed. GENERAL: Patient is a well-developed and nourished Female who is lying comfortable in the stretcher. Patient is not in any acute respiratory distress. HEAD AND FACE: Normocephalic EYES: PERRLA, EOMI x 2. EARS: Hearing grossly intact. MOUTH: Oropharynx within normal limits. NECK: Supple, trachea is midline, no adenopathy, no JVD, no carotid bruit. CHEST: Symmetric, no tenderness at palpation LUNGS: Clear to auscultation bilaterally. No wheezing or crackles. CVS: Regular rate and rhythm, S1 and S2 present, no murmurs or gallops appreciated. ABDOMEN: Soft, non-tender. Bowel sounds are normal. No abdominal abnormal pulsations. EXTREMITIES: Full ROM in all major joints, no edema, no cyanosis or clubbing. NEURO: Alert and oriented x 3. No acute neurological deficits. Speech is normal and follows commands. SKIN: Dry and warm Triage Information Reviewed: Yes Vital Signs: Initial Vital Signs Temp 98.5 F 05/20/18 21:10 Pulse 64 05/20/18 21:10 Resp 18 05/20/18 21:10 BP 138/86 05/20/18 21:10 Pulse Ox 99 05/20/18 21:10 Vital Signs Reviewed: Yes Complaint Female Dx - Course Course Of Treatment: Patient is a 57-year-old female with dysuria and urinary frequency. Patient's urinalysis shows positive leukocytes. Patient will be given a prescription for ciprofloxacin and Pyridium. Patient is to follow with the primary care physician in the next couple days. She will go to the ED if the symptoms worsen or do not improve. Patient understands and agrees. - Differential Dx/Diagnosis Provider Diagnoses: UTI Discharge - Sign-Out/Discharge Documenting (check all that apply): Patient Departure - Discharge Plan Condition: Stable Disposition: HOME Prescriptions: Ciprofloxacin TAB* [Cipro 500 MG TAB*] 500 mg PO BID #6 tab Phenazopyridine TAB* [Pyridium 100 mg TAB*] 100 mg PO TID #9 tab Patient Education Materials: Urinary Tract Infection in Women (DC) Referrals: Iwona Salgado MD [Primary Care Provider] - 3 Days Additional Instructions: Take medications as instructed and adhere to plan Take Acetaminophen or ibuprofen for pain or fever Increase your fluid intake Return to the or go to the emergency department if symptoms worsen Follow-up with primary care physician in next 2-3 days - Billing Disposition and Condition Condition: STABLE Disposition: Home
[2018-05-20] MEDS ORDERED: Phenazopyridine TAB* 100 MG PO ONE (21:41)
[2018-05-20] MEDS ORDERED: Ciprofloxacin TAB* 500 MG PO ONE (21:41)
--- NOTE | 2018-05-22 21:58 | UC ---
- Progress Note Progress Note: 05/22/2018 Pt Dx w/ UTI. Rx Ciprofloxacin PO. Urine culture + for E.coli. Awaiting final sensitivity report. Chelle Valdovinos PA-C Discharge - Sign-Out/Discharge Documenting (check all that apply): Patient Departure - D/c home - Discharge Plan Condition: Stable Disposition: HOME Prescriptions: Ciprofloxacin TAB* [Cipro 500 MG TAB*] 500 mg PO BID #6 tab Phenazopyridine TAB* [Pyridium 100 mg TAB*] 100 mg PO TID #9 tab Patient Education Materials: Urinary Tract Infection in Women (DC) Referrals: Iwona Salgado MD [Primary Care Provider] - 3 Days Additional Instructions: Take medications as instructed and adhere to plan Take Acetaminophen or ibuprofen for pain or fever Increase your fluid intake Return to the or go to the emergency department if symptoms worsen Follow-up with primary care physician in next 2-3 days - Billing Disposition and Condition Condition: STABLE Disposition: Home
--- NOTE | 2018-05-23 16:55 | UC ---
- Progress Note Progress Note: Urine final with sens to Cipro. No change Discharge - Sign-Out/Discharge Documenting (check all that apply): Post-Discharge Follow Up - Discharge Plan Condition: Stable Disposition: HOME Prescriptions: Ciprofloxacin TAB* [Cipro 500 MG TAB*] 500 mg PO BID #6 tab Phenazopyridine TAB* [Pyridium 100 mg TAB*] 100 mg PO TID #9 tab Patient Education Materials: Urinary Tract Infection in Women (DC) Referrals: Iwona Salgado MD [Primary Care Provider] - 3 Days Additional Instructions: Take medications as instructed and adhere to plan Take Acetaminophen or ibuprofen for pain or fever Increase your fluid intake Return to the or go to the emergency department if symptoms worsen Follow-up with primary care physician in next 2-3 days - Billing Disposition and Condition Condition: STABLE Disposition: Home
== END 2018-05-20 21:45 | disposition home or self-care (01) ==
LOC: UCEAST 21:05
DX: N39.0 Urinary tract infection, site not specified (principal); B96.20 Unspecified Escherichia coli [E. coli] as the cause of diseases classified elsewhere; Z88.0 Allergy status to penicillin
CPT/HCPCS: 81003; 87077; 87086; 87186; 99212; A9270-GY; G0463

== ENCOUNTER 2019-01-02 13:39 | Emergency (ER) | payer OTHER ==
--- NOTE | 2019-01-02 17:05 | ED ---
GI/ HPI - HPI Summary HPI Summary: 58 year old female presents with one episode of rectal bleeding today. She states she got some abdominal cramping during a walk. When she went to the bathroom afterwards, she noticed some blood in her underwear when she went to the bathroom. She states she had one episode of loose stool yesterday. no history of colitis or diverticulitis. Had a normal bowel movement after that episode of blood. this has never happened before. she is not on blood thinners. Denies abdominal pain. No nausea vomiting. No fevers. Has history of IBS. No recent antibiotic use. No chest pain shortness of breath. No urinary symptoms. had colonscopy in 2016. - History of Current Complaint Chief Complaint: EDGIBleed Time Seen by Provider: 01/02/19 16:40 Stated Complaint: GUSH OF BLOOD CAME OUT RECTALLY PER PT. Pain Intensity: 0 - Allergy/Home Medications Allergies/Adverse Reactions: Allergies Allergy/AdvReac Type Severity Reaction Status Date / Time Penicillins Allergy Unknown Verified 01/02/19 13:54 Reaction Details strawberry Allergy Hives Verified 01/02/19 13:54 PMH/Surg Hx/FS Hx/Imm Hx Endocrine/Hematology History: Reports: Hx Thyroid Disease Denies: Hx Anticoagulant Therapy Cardiovascular History: Denies: Hx Myocardial Infarction Respiratory History: Denies: Hx Asthma - Cancer History Hx Chemotherapy: No Hx Radiation Therapy: No - Surgical History Surgery Procedure, Year, and Place: hysterectomy, appendectomy, thyroid cyst removal Infectious Disease History: No Infectious Disease History: Denies: Traveled Outside the [place] in Last 30 Days - Family History Known Family History: Positive: Diabetes Negative: Cardiac Disease, Hypertension - Social History Alcohol Use: None Substance Use Type: Reports: None Smoking Status (MU): Never Smoked Tobacco Review of Systems Negative: Fever Negative: Chest Pain Negative: Shortness Of Breath Positive: Other - rectal bleed All Other Systems Reviewed And Are Negative: Yes Physical Exam Triage Information Reviewed: Yes Vital Signs On Initial Exam: Initial Vitals Temp Pulse Resp BP Pulse Ox 98.1 F 80 18 128/69 99 01/02/19 13:54 01/02/19 13:54 01/02/19 13:54 01/02/19 13:54 01/02/19 13:54 Vital Signs Reviewed: Yes Appearance: Positive: Well-Appearing Skin: Positive: Warm, Dry Head/Face: Positive: Normal Head/Face Inspection Eyes: Positive: Normal, EOMI, MICHELET, Conjunctiva Clear ENT: Positive: Normal ENT inspection, Pharynx normal, TMs normal Respiratory/Lung Sounds: Positive: Clear to Auscultation, Breath Sounds Present Cardiovascular: Positive: Normal, RRR Abdomen Description: Positive: Nontender, Soft, Other: - hemorrhoid present Bowel Sounds: Positive: Present Musculoskeletal: Positive: Normal Neurological: Positive: Normal Psychiatric: Positive: Normal Diagnostics - Vital Signs Vital Signs Temp Pulse Resp BP Pulse Ox 01/02/19 15:58 98.8 F 70 16 131/78 100 01/02/19 13:54 98.1 F 80 18 128/69 99 - Laboratory Result Diagrams: 01/02/19 17:13 01/02/19 17:13 Lab Statement: Any lab studies that have been ordered have been reviewed, and results considered in the medical decision making process. Re-Evaluation - Re-Evaluation First Eval Re-Evaluation Time: 17:57 Change: Unchanged Comment: still no pain GIGU Course/Dx - Course Course Of Treatment: 58 year old female presents with one episode of rectal bleeding today. She states she got some abdominal cramping during a walk. When she went to the bathroom afterwards, she noticed some blood in her underwear when she went to the bathroom. She states she had one episode of loose stool yesterday. no history of colitis or diverticulitis. Had a normal bowel movement after that episode of blood. this has never happened before. she is not on blood thinners. Denies abdominal pain. No nausea vomiting. No fevers. Has history of IBS. No recent antibiotic use. No chest pain shortness of breath. No urinary symptoms. had colonscopy in 2016. On exam nontender abdomen. Normal rectal exam with a hemorrhoid present. h/h normal. vital stables. occult blood negative. discussed case with dr bowman. patient has had recent colonscope so can follow up with primary. warned if develop abd pain, fever, or presistent rectal bleeding to return. patient understand and agrees with plan. - Diagnoses Differential Diagnoses - Female: Colitis, Hemorrhoids, Other - gi bleed Provider Diagnoses: Rectal bleed Discharge - Sign-Out/Discharge Documenting (check all that apply): Patient Departure Patient Received Moderate/Deep Sedation with Procedure: No - Discharge Plan Condition: Good Disposition: HOME Patient Education Materials: Rectal Bleeding (ED) Referrals: Iwona Salgado MD [Primary Care Provider] - Additional Instructions: follow up with primary Return to ED if develop persistent bleeding or abd pain, or any new or worsening symptoms - Billing Disposition and Condition Condition: GOOD Disposition: Home
[2019-01-02 17:21] LABS: ABS Basophils 0 10^3/ul (0-0.2); ABS Eosinophils 0 10^3/ul (0-0.6); ABS Lymphocytes 1.5 10^3/ul (1.0-4.8); ABS Monocytes 0.4 10^3/ul (0-0.8); ABS Neutrophils 3.9 10^3/ul (1.5-7.7); ABS Nucleated RBC 0 10^3/ul; Eosinophil % 0.8 %; Hematocrit 43 % (33-41); Hemoglobin 14.4 g/dL (12.0-16.0); Lymphocyte % 25.3 %; Mean Corpuscular HGB Conc 34 g/dL (31-36); Mean Corpuscular Hemoglobin 32 pg (27-31); Mean Corpuscular Volume 94 fL (80-97); Mean Platelet Volume 7.2 fL (7.4-10.4); Nucleated Red Blood Cells % 0; Platelet Count 196 10^3/uL (150-450); Red Blood Count 4.56 10^6 /uL (3.70-4.87); Red Cell Distribution Width 14 % (10.5-15); White Blood Count 5.8 10^3/uL (3.5-10.8)
[2019-01-02 17:38] LABS: Albumin 4.6 g/dL (3.2-5.2); Albumin/Globulin Ratio 1.2 (1-3); BUN/Creatinine Ratio 15.6 (8-20); C Reactive Protein 2.67 mg/L (<8.01); Calcium 9.7 mg/dL (8.6-10.3); EGFR African American 71.7 (>60); EGFR Non-African American 59.3 (>60); Globulin 3.7 g/dL (2-4); Potassium 4.1 mmol/L (3.5-5.0); Total Bilirubin 0.4 mg/dL (0.2-1.0); Total Protein 8.3 g/dL (6.4-8.9)
[2019-01-02 18:04] VITALS: BP 114/77
== END 2019-01-02 18:04 | disposition home or self-care (01) ==
LOC: ED 13:39
DX: K62.5 Hemorrhage of anus and rectum (principal); Z88.0 Allergy status to penicillin; Z91.018 Allergy to other foods
CPT/HCPCS: 36415; 80053; 82272; 83605; 83690; 85025; 86140; 86850; 86900; 86901; 99282